=== PATIENT | female | born 1965 | race Caucasian/White ===

== ENCOUNTER → 2016-08-04 | Outpatient (CLI) | payer OTHER ==
[~2016-08-04] MED LIST: ASPCH81X PO; ATOR10TA88 PO; CYAN10005 PO; ERGO1CAP35 PO; LEVO88TA3 PO; LIDO5DIS10 TD; PANT40TA PO; POLY3350 PO; TAMO20TA5 PO; ZOLP10TA PO
[2016-08-04 10:04] LABS: BASO % 0.1 %; BASO ABS # 0.01 K/uL (0-0.2); COMPLETE YES; EOS % 1.2 %; HEMATOCRIT 38.4 % (37-47); IG% 0.5 %; LYMPH % 31.4 %; MEAN CELL VOLUME 87.5 fL (80-100); MEAN PLATELET VOLUME 9.9 fL (7.4-10.4); MONO % 7.5 %; NEUT % 59.3 %; PLATELET COUNT 318 K/uL (130-400); RED BLOOD COUNT 4.39 M/uL (4.2-5.4); WHITE BLOOD COUNT 7.65 K/uL (4.8-10.8)
[2016-08-04 10:37] LABS: ALT/SGPT 43 U/L (12-78); BLOOD UREA NITROGEN 11 mg/dl (7-18); BUN/CREATININE RATIO 10.6 (10-20); CARBON DIOXIDE 28 mmol/L (21-32); CHLORIDE 107 mmol/L (98-107); CHOLESTEROL 156 mg/dl (0-200); CREATININE 0.99 mg/dl (0.60-1.20); GLUCOSE 80 mg/dl (70-99); POTASSIUM 4.3 mmol/L (3.5-5.1); SODIUM 144 mmol/L (136-145)
[2016-08-04 10:46] LABS: ALKALINE PHOSPHATASE 101 U/L (45-117); AST/SGOT 50 U/L (15-37); HDL CHOLESTEROL 39 mg/dl; LDL CHOLESTEROL CALCULATED 82 mg/dl; TRIGLYCERIDES 176 mg/dl (0-150); VERY LOW DENSITY LIPOPROT CALC 35 mg/dl
== END | disposition home or self-care (01) ==
LOC: C.LAB1850 09:05
PROVIDERS: ATTEND Nurse Practitioner Family
DX: E03.9 Hypothyroidism, unspecified (principal); E78.00 Pure hypercholesterolemia, unspecified

== ENCOUNTER → 2016-08-10 | Outpatient (CLI) | payer OTHER ==
[2016-08-10 11:23] LABS: URINE APPEARANCE CLEAR (CLEAR); URINE BILIRUBIN NEG (NEG); URINE COLOR YELLOW; URINE EPITHELIAL CELL AUTO >30 /lpf (0-5); URINE NITRITE NEG (NEG); URINE PH 6.5 (4.5-7.5); URINE SPECIFIC GRAVITY 1.025 (1.000-1.030); UROBILINOGEN NEG (NEG)
[2016-08-10 11:34] LABS: MANUAL MICROSCOPIC REQUIRED? NO; REVIEW REQ? NO
== END | disposition home or self-care (01) ==
LOC: C.LABSPEC 10:50
PROVIDERS: ATTEND Family Medicine
DX: R39.15 Urgency of urination (principal); R10.9 Unspecified abdominal pain

== ENCOUNTER → 2016-10-02 | Outpatient (CLI) | payer OTHER | END | disposition home or self-care (01) | LOC: C.LABSPEC 17:44 | PROVIDERS: ATTEND Nurse Practitioner Family | DX: J02.9 Acute pharyngitis, unspecified (principal) ==

== ENCOUNTER → 2017-02-09 | Outpatient (CLI) | payer OTHER ==
[2017-02-09 09:43] LABS: ALT/SGPT 34 U/L (12-78); BLOOD UREA NITROGEN 12 mg/dl (7-18); BUN/CREATININE RATIO 11.7 (10-20); CALCIUM 9.2 mg/dl (8.5-10.1); CARBON DIOXIDE 29 mmol/L (21-32); CHLORIDE 108 mmol/L (98-107); CHOLESTEROL 153 mg/dl (0-200); GLUCOSE 94 mg/dl (70-99); POTASSIUM 4.3 mmol/L (3.5-5.1); SODIUM 142 mmol/L (136-145)
[2017-02-09 09:54] LABS: ALKALINE PHOSPHATASE 86 U/L (45-117); AST/SGOT 37 U/L (15-37); CHOLESTEROL/HDL RATIO 3.6; HDL CHOLESTEROL 43 mg/dl; LDL CHOLESTEROL CALCULATED 83 mg/dl; TRIGLYCERIDES 133 mg/dl (0-150); VERY LOW DENSITY LIPOPROT CALC 27 mg/dl
== END | disposition home or self-care (01) ==
LOC: C.LAB1850 08:02
PROVIDERS: ATTEND Nurse Practitioner Family
DX: E03.9 Hypothyroidism, unspecified (principal); E55.9 Vitamin D deficiency, unspecified; E53.8 Deficiency of other specified B group vitamins; E78.00 Pure hypercholesterolemia, unspecified

== ENCOUNTER → 2017-03-09 | Outpatient (CLI) | payer OTHER | END | disposition home or self-care (01) | LOC: C.LABSPEC 11:03 | PROVIDERS: ATTEND Nurse Practitioner Adult Health | DX: J02.9 Acute pharyngitis, unspecified (principal) ==

== ENCOUNTER → 2017-05-10 | Outpatient (CLI) | payer OTHER ==
[~2017-05-10] MED LIST changes: +ATOR10TA82 PO; -ATOR10TA88 PO
[2017-05-10 12:52] VITALS: BP 121/81; PULSE 73; TEMP 36.9; O2SAT 97
--- NOTE | 2017-05-10 15:57 | Radiation Oncology Follow-Up ---
Radiation Oncology Follow-Up Date of Visit May 10, 2017. 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 Status post completion of radiation therapy 10/08/2013 received 6120 cGy Status post breast abscess 02/02/2014 requiring incision and drainage and then wound VAC placement. Ongoing treatment with tamoxifen Status post prophylactic total abdominal hysterectomy bilateral salpingo- oophorectomy 04/16/2015 Last Edited By: Sonal Og on May 05, 2015 13:35 Interim History She's been doing well over this past year she has noted no changes to her breast. She's noticed no masses or tenderness and no change of the axilla. She 's had no swelling of her arm. She is up-to-date on mammography. She also has follow-up MRIs. She finds that the MRIs are uncomfortable due to the position that she has to lie in. This causes some discomfort of her back. She continues on tamoxifen and denies side effects. Allergies Coded Allergies: Adhesives (Verified Adverse Reaction, Intermediate, TEGADERM TAPE-BLISTERS , 04/12/16) Hydrocodone (Verified Adverse Reaction, Intermediate, BODY TREMBLING, 04/12) Flu Virus Vaccine (Verified Adverse Reaction, Mild, VOMITING, 04/12/16) Oxycodone (Verified Adverse Reaction, Mild, VOMITING, 04/12/16) Home Medications Scheduled Aspirin (Aspirin Chewable), 81 MG PO QAM Atorvastatin (Lipitor), 10 MG PO QPM Cyanocobalamin (Vitamin B-12), 1,000 MCG PO DAILY Ergocalciferol (Vitamin D Cap), 50,000 INTER.UNIT PO WK Levothyroxine Sodium (Levothyroxine Sodium), 1 TAB PO QAM Pantoprazole (Protonix), 40 MG PO QAM Tamoxifen Citrate (Nolvadex), 20 MG PO QAM Scheduled PRN Polyethylene Glycol 3350 (Polyethylene Glycol 3350), 1 DOSE PO QAM PRN for Constipation Zolpidem Tartrate (Ambien), 10 MG PO HS PRN for Sleep Review of Systems Gastrointestinal: Symptoms: WNL Oral: Symptoms: No Problems Respiratory: Symptoms: WNL Urinary: Symptoms: WNL Skin: Symptoms: No Problems Breast: Right Upper Arm Measurement: 30.0 Right Mid Arm Measurement: 25.8 Right Wrist Measurement: 16.5 Left Upper Arm Measurement: 30.3 Left Mid Arm Measurement: 25.5 Left Wrist Measurement: 16.4 Arm Dominence: Right Physical Exam Vital Signs Date Time Temp Pulse Resp B/P (MAP) Pulse Ox O2 Delivery O2 Flow Rate FiO2 05/10/17 12:52 36.9 73 16 121/81 97 Fatigue: None General Appearance: no apparent distress Eyes: normal inspection, EOMI ENT: normal ENT inspection, hearing grossly normal Neck: no adenopathy, thyroid normal Respiratory/Chest: lungs clear, no respiratory distress, no accessory muscle use Breast: Breast examination reveals well-healed incisions of the right breast. There is noted asymmetry from the postoperative changes and deficit of tissue in the lower outer quadrant. There is mild telangiectasia of the breast incision area. There are no masses or tenderness and no axillary adenopathy. Using the [place] score cosmesis she has a report outcome. The left breast showed no masses or tenderness and no axillary adenopathy. Cardiovascular: regular rate, rhythm, no gallop, no murmur Extremities: no pedal edema Neurologic/Psychiatric: no motor/sensory deficits, alert, normal mood/affect Skin: warm/dry Lymphatic: no adenopathy Laboratory Studies Test 02/09/17 08:05 Sodium Level 142 mmol/L (136-145) Potassium Level 4.3 mmol/L (3.5-5.1) Chloride Level 108 mmol/L (98-107) Carbon Dioxide Level 29 mmol/L (21-32) Anion Gap 5.0 mmol/L (3-11) Blood Urea Nitrogen 12 mg/dl (7-18) Creatinine 1.00 mg/dl (0.60-1.20) Estimated GFR () 76.6 Estimated GFR (Non- 66.1 BUN/Creatinine Ratio 11.7 (10-20) Random Glucose 94 mg/dl (70-99) Calcium Level 9.2 mg/dl (8.5-10.1) Total Bilirubin 0.4 mg/dl (0.2-1) Aspartate Amino Transferase (AST) 37 U/L (15-37) Alanine Aminotransferase (ALT) 34 U/L (12-78) Alkaline Phosphatase 86 U/L (45-117) Total Protein 7.1 gm/dl (6.4-8.2) Albumin 3.5 gm/dl (3.4-5.0) Globulin 3.6 gm/dl (2.5-4.0) Albumin/Globulin Ratio 1.0 (0.9-2) Triglycerides Level 133 mg/dl (0-150) Cholesterol Level 153 mg/dl (0-200) HDL Cholesterol 43 mg/dl LDL Cholesterol, Calculated 83 mg/dl VLDL Cholesterol, Calculated 27 mg/dl Cholesterol/HDL Ratio 3.6 Vitamin B12 Level 952 pg/mL (211-911) 25-Hydroxy Vitamin D Total 63.2 ng/ml (30-100) Thyroid Stimulating Hormone (TSH) 1.120 uIu/ml (0.300-4.500) Additional Studies She had a mammogram 12/04/2016. This was a bilateral evaluation. This was negative, no evidence of malignancy. Normal interval follow-up was recommended for 12 months. BI-RADS Category 2 Assessment & Plan Plan: Continue but scheduled mammography. Her next mammogram is scheduled for November. She has a recheck MRI scheduled for June 25. I have asked her to talk to the breast surgeon about the MRIs and that these cause back discomfort. I did educate her on the importance of this study in women who have dense breasts. This type of imaging as well as mammography is important for good evaluation. Continue follow-up with her breast surgeon and primary care physician. She'll continue follow-up with Dr. Hatfield. In medical oncology. She continues on tamoxifen. We discussed the breasts asymmetry and difficulty with fitting a bra. I made her aware of the program called [employer]. We also discussed placing padding into the bra. We asked her to return to our office in 1 year. She may call if she has any questions or concerns in the interim. Total Time In Follow-Up I spent 20 minutes speaking to the patient and performing examination. I spent 15 minutes reviewing information and completeness note. 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
== END | disposition home or self-care (01) ==
LOC: C.ONC 12:26
PROVIDERS: ATTEND Physician Assistant Medical
DX: Z08 Encounter for follow-up examination after completed treatment for malignant neoplasm (principal); Z92.3 Personal history of irradiation; Z85.3 Personal history of malignant neoplasm of breast

== ENCOUNTER → 2017-07-31 | Outpatient (CLI) | payer OTHER ==
[~2017-07-31] MED LIST changes: +ERGO500037 PO; +FLAX1CAP11 PO; -LIDO5DIS10 TD
[2017-07-31 12:39] LABS: BLOOD UREA NITROGEN 14 mg/dl (7-18); CREATININE 1.02 mg/dl (0.60-1.20); GLUCOSE 93 mg/dl (70-99)
[2017-07-31 12:40] LABS: ALBUMIN 3.9 gm/dl (3.4-5.0); ALT/SGPT 40 U/L (12-78); AST/SGOT 51 U/L (15-37); CALCIUM 9.2 mg/dl (8.5-10.1); CARBON DIOXIDE 27 mmol/L (21-32); POTASSIUM 4.1 mmol/L (3.5-5.1); SODIUM 137 mmol/L (136-145); TOTAL PROTEIN 7.9 gm/dl (6.4-8.2)
[2017-07-31 12:49] LABS: ALKALINE PHOSPHATASE 92 U/L (45-117); CHOLESTEROL 174 mg/dl (0-200); LDL CHOLESTEROL CALCULATED 95 mg/dl
== END | disposition home or self-care (01) ==
LOC: C.LAB1850 09:30
PROVIDERS: ATTEND Nurse Practitioner Family
DX: E78.00 Pure hypercholesterolemia, unspecified (principal); E03.9 Hypothyroidism, unspecified; E55.9 Vitamin D deficiency, unspecified; E53.8 Deficiency of other specified B group vitamins

== ENCOUNTER → 2017-08-21 | Outpatient (CLI) | payer OTHER ==
[~2017-08-21] MED LIST changes: -ERGO500037 PO; -FLAX1CAP11 PO
[2017-08-21 16:14] LABS: BASO % 0.1 %; BASO ABS # 0.01 K/uL (0-0.2); EOS % 0.8 %; EOS ABS # 0.06 K/uL (0-0.5); HEMATOCRIT 35.5 % (37-47); HEMOGLOBIN 11.6 g/dL (12.0-16.0); IG# 0.02 K/uL (0.00-0.02); MEAN CORPUSCULAR HEMOGLOBIN 28.4 pg (25-34); MEAN CORPUSCULAR HGB CONC 32.7 g/dl (32-36); MEAN PLATELET VOLUME 9.9 fL (7.4-10.4); MONO % 7.9 %; NEUT % 57.9 %; NEUT ABS # 4.39 K/uL (1.4-6.5); PLATELET COUNT 282 K/uL (130-400); RED CELL DISTRIBUTION WIDTH SD 48.1 fL (36.4-46.3); WHITE BLOOD COUNT 7.58 K/uL (4.8-10.8)
[2017-08-21 16:51] LABS: URIC ACID 5.3 mg/dl (2.6-7.2)
== END | disposition home or self-care (01) ==
LOC: C.LAB1850 15:35
PROVIDERS: ATTEND Nurse Practitioner Family
DX: M25.50 Pain in unspecified joint (principal)

== ENCOUNTER → 2017-08-30 | Outpatient (CLI) | payer OTHER ==
--- NOTE | 2017-08-30 09:16 | DIAGNOSTIC IMAGING REPORT ---
R KNEE 1 OR 2 VIEWS ROUTINE CLINICAL HISTORY: 52 years-old Female presenting with M25.50 Arthralgia of multiple tokbwO27.8 MAXIMILIANO [id number] Neck. TECHNIQUE: Frontal and lateral views of the right knee were obtained. COMPARISON: Correlation made to plain radiographs of the left knee from 2009. FINDINGS: No acute fracture or malalignment. No advanced degenerative change. No evidence of erosions. No joint effusion. No radiographic soft tissue abnormality. IMPRESSION: 1. No evidence of arthritis in the right knee. 2. No acute osseous injury. Electronically signed by: Braulio Stein M.D. 08/30/2017 9:15 AM Dictated Date/Time: 08/30/2017 9:14 AM
--- NOTE | 2017-08-30 09:17 | DIAGNOSTIC IMAGING REPORT ---
RIGHT HAND 3 VIEWS CLINICAL HISTORY: Multifocal arthralgias. FINDINGS: 3 views of the right hand are obtained. No prior studies are available for comparison at the time of dictation. The skeletal structures are well mineralized. No fracture is seen. The joint spaces of the hand are well-maintained. No erosive disease is identified. The overlying soft tissues are within normal limits. IMPRESSION: Unremarkable radiographic assessment of the right hand. Electronically signed by: Ezio Pantoja M.D. 08/30/2017 9:16 AM Dictated Date/Time: 08/30/2017 9:15 AM
--- NOTE | 2017-08-30 09:19 | DIAGNOSTIC IMAGING REPORT ---
L HAND MIN 3 VIEWS ROUTINE CLINICAL HISTORY: M25.50 Arthralgia of multiple yzfhhZ10.8 MAXIMILIANO positive COMPARISON: None. DISCUSSION: No fractures are visualized. There are no erosive or destructive changes. IMPRESSION: 1. No evidence of fracture 2. No evidence of erosive disease Electronically signed by: Teo Skelton M.D. 08/30/2017 9:18 AM Dictated Date/Time: 08/30/2017 9:14 AM
--- NOTE | 2017-08-30 09:19 | DIAGNOSTIC IMAGING REPORT ---
C-SPINE ROUTINE 4 OR 5 VIEWS CLINICAL HISTORY: 52 years-old Female presenting with M25.50 Arthralgia of multiple kspjaH20.8 MAXIMILIANO dtszoukwE25.2 Neck. TECHNIQUE: Lateral, bilateral oblique, frontal, and open-mouth odontoid views of the cervical spine were obtained. COMPARISON: 01/15/2014 and CTA neck from 2015. FINDINGS: Normal cervical lordosis. The C7 vertebral body is fully visualized. Vertebral bodies maintain normal height and alignment. Intervertebral disc spaces preserved. No significant degenerative change at the atlantodental articulation. No radiographic evidence of acute fracture or subluxation. Mild osseous neural foraminal narrowing may be present on the right at C3-4 through C5-6. No left osseous neural foraminal narrowing. Lateral masses of C1 articulate normally with C2. No prevertebral soft tissue swelling. Lung apices clear. IMPRESSION: No significant degenerative change though mild osseous neural foraminal narrowing may be present on the right from C3-4 through C5-6. No radiographic evidence of acute osseous injury. No radiographic findings indicative of arthritis. Electronically signed by: Braulio Stein M.D. 08/30/2017 9:17 AM Dictated Date/Time: 08/30/2017 9:15 AM
[2017-08-30 10:28] LABS: TRANSFERRIN 327 mg/dl (200-360)
[2017-09-05 02:33] LABS: ANA SCREEN TC 249X POSITIVE (NEGATIVE); ANTI-SS-A <1.0 NEG AI (<1.0 NEG); ANTI-SS-B <1.0 NEG AI (<1.0 NEG); COMPLEMENT C3 TC 44859W 125 MG/DL (90-180); COMPLEMENT C4 TC 44982E 24 MG/DL (16-47)
== END | disposition home or self-care (01) ==
LOC: C.RAD1850 08:40
PROVIDERS: ATTEND Internal Medicine Rheumatology
DX: M25.50 Pain in unspecified joint (principal); M54.2 Cervicalgia; R76.8 Other specified abnormal immunological findings in serum

== ENCOUNTER → 2017-09-10 | Outpatient (CLI) | payer OTHER ==
--- NOTE | 2017-09-10 15:28 | DIAGNOSTIC IMAGING REPORT ---
BONE SCAN WHOLE BODY HISTORY: Breast carcinoma M25.50 Arthralgia of multiple ixrifI47.8 MAXIMILIANO sodvslbmL68.2 Neck RADIOTRACER: 25.5 mCi Tc-99m MDP STUDY/IMAGES: Planar anterior and posterior whole body imaging was performed 3 hours following the intravenous administration of radiotracer. COMPARISON: 09/17/2014 FINDINGS: Bilateral renal activity is present. Minimal scattered degenerative activity of the shoulders and elbows. Normal activity characteristics of all remaining osseous structures. No evidence for metastatic process. No abnormal soft tissue activity characteristics. IMPRESSION: 1. The study is negative for metastatic bone disease. 2. Minimal degenerative activity of the shoulders and elbows. The above report was generated using voice recognition software. It may contain grammatical, syntax or spelling errors. Electronically signed by: Bryan Aviles M.D. 09/10/2017 3:26 PM Dictated Date/Time: 09/10/2017 3:24 PM
== END | disposition home or self-care (01) ==
LOC: C.NUCL 11:44
PROVIDERS: ATTEND Internal Medicine Rheumatology
DX: M25.60 Stiffness of unspecified joint, not elsewhere classified (principal); M54.2 Cervicalgia; R76.8 Other specified abnormal immunological findings in serum

== ENCOUNTER → 2017-10-19 | Day surgery (SDC) | payer OTHER ==
[2017-10-04 14:48] VITALS: Ht 167.6 cm; Wt 90.9 kg
[~2017-10-19] VITALS: Ht 167.6 cm; Wt 90.9 kg
[~2017-10-19] MED LIST changes: -ERGO1CAP35 PO; +ERGO500037 PO; +FLAX1CAP11 PO; +LIDOCAINE HCL 2% 2 ML VIAL (20MG/ML) ONE; +PROPOFOL IV EMULSION 10 MG/ML 20 ML VIAL IV ONE; +SODIUM CHLORIDE 0.9% 500ML 500 ML IV ONE
--- NOTE | 2017-10-19 10:08 | Endo History and Physical ---
History & Physical Date of Service: Oct 19, 2017. Chief Complaint: Screening Referring Physician: Flip Rogers History of Present Illness 52 yo CF who presents for screening colonoscopy. Past Medical History Anxiety, Reflux, Cancer, Thyroid Disease, Depression Past Surgical History Hx Cardiac Surgery: No Hx Internal Defibrillator: No Hx Pacemaker: No Hx Abdominal Surgery: Yes (TUBAL LIGATION, REMOVAL OF OVARIAN CYST, MARCO BSO, D& C) Hx of Implantable Prosthesis: No Hx Post-Op Nausea and Vomiting: Yes (R/T NARCOTICS) Hx Cancer Surgery: Yes (RIGHT BREAST LUMPECTOMY WITH LYMPH NODE DISECTION) Hx Thoracic Surgery: No Hx Orthopedic: Yes (RT WRIST SURGERY, LEFT ANKLE TENDON REPAIR) Hx Urinary Tract Surgery: No Family History None Social History Smoking Status: Never Smoker Hx Substance Use: No Hx Alcohol Use: No Allergies Coded Allergies: Adhesives (Verified Adverse Reaction, Intermediate, TEGADERM TAPE-BLISTERS , 10/19/17) Hydrocodone (Verified Adverse Reaction, Intermediate, BODY TREMBLING, 10/19) Flu Virus Vaccine (Verified Adverse Reaction, Mild, VOMITING, 10/19/17) Oxycodone (Verified Adverse Reaction, Mild, VOMITING, 10/19/17) Current Medications Reported Home Medications Medications Dose Route/Sig Max Daily Dose Days Date Category Flax Seed Oil (Flaxseed (Linseed)) 1 Cap Cap 1 Cap PO QAM 10/04/17 Reported Vitamin D 89570 Unit (Ergocalciferol) 50,000 Unit Cap 50,000 Unit PO WK 10/04/17 Reported Vitamin B-12 (Cyanocobalamin) 1,000 Mcg Tab 1,000 Mcg PO QAM 05/09/16 Reported Aspirin Chewable (Aspirin) 81 Mg Chew 81 Mg PO QAM 03/30/16 Reported Protonix (Pantoprazole Sodium) 40 Mg Tab 40 Mg PO QAM 03/30/16 Reported Lipitor (Atorvastatin Calcium) 10 Mg Tab 10 Mg PO QPM 03/30/16 Reported Levothyroxine Sodium 88 Mcg Tab 1 Tab PO QAM 90 03/30/15 Reported Polyethylene Glycol 3350 1 Pow Pow 1 Dose PO QAM PRN 05/05/14 Reported Nolvadex (Tamoxifen Citrate) 20 Mg Tab 20 Mg PO QAM 01/30/14 Reported Ambien (Zolpidem Tartrate) 10 Mg Tab 10 Mg PO HS PRN 09/03/12 Reported Vital Signs Weight (Kilograms): 90.91 Height (Feet): 5 Height (Inches): 6 Date Time Temp Pulse Resp B/P (MAP) Pulse Ox O2 Delivery O2 Flow Rate FiO2 10/19/17 09:49 37.2 70 18 138/88 (105) 99 Room Air Physical Exam General Appearance: WD/WN, no apparent distress Respiratory/Chest: Auscultation: breath sounds normal Cardiovascular: Heart Auscultation: RRR Abdomen: Bowel Sounds: normal Inspection & Palpation: soft, non-distended, no tenderness, guarding & rebound Assessment and Plan Assessment: 52 yo CF who presents for screening colonoscopy. Plan: Proceed with colonoscopy.
--- NOTE | 2017-10-19 10:38 | GI REPORT ---
Procedure Date: 10/19/2017 9:57 AM Procedure: Colonoscopy Indications: Screening for colorectal malignant neoplasm Medicines: Monitored Anesthesia Care Complications: No immediate complications. Estimated Blood Loss: Estimated blood loss: none. Procedure: Pre-Anesthesia Assessment: - Prior to the procedure, a History and Physical was performed, and patient medications and allergies were reviewed. The patient's tolerance of previous anesthesia was also reviewed. The risks and benefits of the procedure and the sedation options and risks were discussed with the patient. All questions were answered, and informed consent was obtained. Prior Anticoagulants: The patient has taken no previous anticoagulant or antiplatelet agents. ASA Grade Assessment: II - A patient with mild systemic disease. After reviewing the risks and benefits, the patient was deemed in satisfactory condition to undergo the procedure. After I obtained informed consent, the scope was passed under direct vision. Throughout the procedure, the patient's blood pressure, pulse, and oxygen saturations were monitored continuously. The Scope was introduced through the anus and advanced to the terminal ileum. The colonoscopy was performed without difficulty. The patient tolerated the procedure well. The quality of the bowel preparation was good. The terminal ileum, ileocecal valve, appendiceal orifice, and rectum were photographed. Findings: The perianal and digital rectal examinations were normal. Non-bleeding internal hemorrhoids were found during retroflexion. The hemorrhoids were small. The exam was otherwise without abnormality. Impression: - Non-bleeding internal hemorrhoids. - The examination was otherwise normal. - No specimens collected. Recommendation: - Resume previous diet. - Continue present medications. - Repeat colonoscopy in 10 years for surveillance. - Return to primary care physician as previously scheduled. Prasad Churchill, 10/19/2017 10:38:07 AM This report has been signed electronically. Note Initiated On: 10/19/2017 9:57 AM I attest to the content of the Intraoperative Record and orders documented therein, exceptions below
--- NOTE | 2017-10-19 11:02 | Anesthesiology Progress Note ---
Anesthesia Post Op Note Date & Time Oct 19, 2017 at 11:02 Vital Signs Pain Intensity: 0 Vital Signs Past 12 Hours Date Time Temp Pulse Resp B/P (MAP) Pulse Ox O2 Delivery O2 Flow Rate FiO2 10/19/17 10:54 66 16 124/81 (95) 99 Room Air 10/19/17 10:39 83 16 106/69 (81) 100 Room Air 10/19/17 09:49 37.2 70 18 138/88 (105) 99 Room Air Notes Mental Status: alert / awake / arousable, participated in evaluation Pt Amnestic to Procedure: Yes Nausea / Vomiting: adequately controlled Pain: adequately controlled Airway Patency, RR, SpO2: stable & adequate BP & HR: stable & adequate Hydration State: stable & adequate Anesthetic Complications: no major complications apparent
[2017-10-19 11:09] VITALS: BP 142/88; PULSE 60; O2SAT 99
--- NOTE | 2017-10-19 11:21 | Discharge Instructions ---
Endoscopy Patient Instructions Date / Procedure(s) Performed Oct 19, 2017. Colonoscopy Allergy Information Coded Allergies: Adhesives (Verified Adverse Reaction, Intermediate, TEGADERM TAPE-BLISTERS , 10/19/17) Hydrocodone (Verified Adverse Reaction, Intermediate, BODY TREMBLING, 10/19) Flu Virus Vaccine (Verified Adverse Reaction, Mild, VOMITING, 10/19/17) Oxycodone (Verified Adverse Reaction, Mild, VOMITING, 10/19/17) Discharge Date / Findings Oct 19, 2017. Internal hemorrhoids Medication Instructions Stopped Medication(s): Aspirin lsat taken on 10/06/17 Flax seed last taken on 10/06/17 OK to resume all medications today as prescribed Reported Home Medications Medications Dose Route/Sig Max Daily Dose Days Date Category Flax Seed Oil (Flaxseed (Linseed)) 1 Cap Cap 1 Cap PO QAM 10/04/17 Reported Vitamin D 74810 Unit (Ergocalciferol) 50,000 Unit Cap 50,000 Unit PO WK 10/04/17 Reported Vitamin B-12 (Cyanocobalamin) 1,000 Mcg Tab 1,000 Mcg PO QAM 05/09/16 Reported Aspirin Chewable (Aspirin) 81 Mg Chew 81 Mg PO QAM 03/30/16 Reported Protonix (Pantoprazole Sodium) 40 Mg Tab 40 Mg PO QAM 03/30/16 Reported Lipitor (Atorvastatin Calcium) 10 Mg Tab 10 Mg PO QPM 03/30/16 Reported Levothyroxine Sodium 88 Mcg Tab 1 Tab PO QAM 90 03/30/15 Reported Polyethylene Glycol 3350 1 Pow Pow 1 Dose PO QAM PRN 05/05/14 Reported Nolvadex (Tamoxifen Citrate) 20 Mg Tab 20 Mg PO QAM 01/30/14 Reported Ambien (Zolpidem Tartrate) 10 Mg Tab 10 Mg PO HS PRN 09/03/12 Reported Provider Instructions Activity Restrictions - No exercising or heavy lifting for 24 hours. - Do not drink alcohol the day of the procedure. - Do not drive a car or operate machinery until the day after the procedure. - Do not make any important decisions or sign important papers in 24 hours after the procedure. Following Day: - Return to full activity which may include returning to work/school. Diet Start your diet with liquids and light foods (jello, soup, juice, toast). Then eat your usual diet if not nauseated. Treatment For Common After Affects For mild abdominal pain, bloating, or excessive gas: - Rest - Eat lightly - Lie on right side Follow-Up Information Follow-up with Flip Rogers as scheduled Anesthesia Information What You Should Know You have had a procedure that required some medicine to reduce anxiety and discomfort. This treatment is called moderate sedation. After receiving the treatment, you may be sleepy, but you will be able to breathe on your own. The effects of the treatment may last for several hours. Follow these instructions along with Activity/Diet recommendations noted above: * Do NOT do anything where dizziness or clumsiness would be dangerous. * Rest quietly at home today, then you can be up and about tomorrow. * Have a responsible person stay with you the rest of today. * You may have had an I.V. today. If so, you may take the dressing off later today. Recommendations Call your doctor if: * Trouble breathing * Continuous vomiting for more than 24 hours * Temperature above 101 degrees * Severe abdominal pain or bloating * Pain not relieved by pain medicine ordered * There is increased drainage or redness from any incision * A large amount of rectal bleeding greater than 2-3 tablespoons. (If you had a polyp/s removed or have hemorrhoids, a small amount of blood - from the rectum is to be expected.) * You have any unanswered questions or concerns. IN THE EVENT OF A SERIOUS EMERGENCY, GO TO THE NEAREST EMERGENCY ROOM Your discharge instructions were prepared by provider Prasad Churchill. Patient Instructions Signature Page Abril Estrada Patient (or Guardian) Signature/Date: I have read and understand the instructions given to me by my caregivers. Caregiver/RN/Doctor Signature/Date: The above-named patient and/or guardian has received patient instructions on this date. + Original Patient Signature Page (only) stays with chart. Please make copy for patient.
== END | disposition home or self-care (01) ==
LOC: C.GI 08:08
PROVIDERS: ATTEND Internal Medicine
DX: Z12.11 Encounter for screening for malignant neoplasm of colon (principal); K64.8 Other hemorrhoids; F41.9 Anxiety disorder, unspecified; K21.9 Gastro-esophageal reflux disease without esophagitis; F32.9 Major depressive disorder, single episode, unspecified; Z90.710 Acquired absence of both cervix and uterus; Z91.048 Other nonmedicinal substance allergy status; Z88.5 Allergy status to narcotic agent; Z88.7 Allergy status to serum and vaccine; Z79.82 Long term (current) use of aspirin; M19.90 Unspecified osteoarthritis, unspecified site; E78.5 Hyperlipidemia, unspecified; Z86.73 Personal history of transient ischemic attack (TIA), and cerebral infarction without residual deficits; Z85.3 Personal history of malignant neoplasm of breast

== ENCOUNTER 2017-10-24 13:54 | Emergency (ER) | payer OTHER ==
[~2017-10-24] VITALS: Ht 167.6 cm; Wt 91.0 kg
[~2017-10-24 13:54] MED LIST changes: -LIDOCAINE HCL 2% 2 ML VIAL (20MG/ML) ONE; -PROPOFOL IV EMULSION 10 MG/ML 20 ML VIAL IV ONE; -SODIUM CHLORIDE 0.9% 500ML 500 ML IV ONE
[2017-10-24 14:02] VITALS: TEMP 37.2; Ht 167.6 cm; Wt 91.0 kg
--- NOTE | 2017-10-24 14:27 | EMERGENCY ROOM VISIT NOTE ---
History Report prepared by Kenzie: Dima Balbuena Under the Supervision of: Dr. Martha Licona D.O. First contact with patient: 14:10 Chief Complaint: URINARY SYMPTOMS Stated Complaint: HAD SURGERY YESTERDAY - UNABLE TO PEE Nursing Triage Summary: pt to the ED with c/o bladder surgery at [facility] yesterday was dc yesterday pt c/o last void was 1130am today pt states she can't go to the bathroom now had a rectocele repair History of Present Illness The patient is a 52 year old female with who presents to the Emergency Room with complaints of a persistent inability to urinate this afternoon. She states that she had bladder surgery (rectocele repair) at [facility] yesterday by Dr. Bush, and was discharged yesterday as well. The patient says that she last urinated around 3 hours ago but it was a very small amount, and notes that she cannot urinate currently. She notes that she sits on the toilet for 5 to 10 minutes and feels the need to urinate but cannot. She states that she took the pain medication that she was prescribed last night but it did not relieve her pain. She adds that her abdomen still hurts, and it feels bloated. The patient says that she called her surgeon today, and was told to come here for treatment. The patient states that she had a lot of bleeding with blood clots, but that has lessened today. She denies any fevers, chills, or current back pain. Source of History: patient Onset: This afternoon Position: other (global) Symptom Intensity: has not urinated in about 3 hours Quality: other (inability to urinate) Timing: other (persistent) Associated Symptoms: + abdominal pain (and bloating), No fevers, No chills, No back pain Note: Some vaginal bleeding, but getting better today. Review of Systems See HPI for pertinent positives & negatives. A total of 10 systems reviewed and were otherwise negative. 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 (3) Kristine thyroiditis (4) Vitamin B12 deficiency (non anemic) (5) Vitamin D deficiency Family History Diabetes mellitus FH: cancer Hypertension Social History Smoking Status: Never Smoker Alcohol Use: occasionally Marital Status: single Housing Status: lives with family Occupation Status: disabled Current/Historical Medications Scheduled Aspirin (Aspirin Chewable), 81 MG PO QAM Atorvastatin (Lipitor), 10 MG PO QPM Cyanocobalamin (Vitamin B-12), 1,000 MCG PO QAM Ergocalciferol (Vitamin D 58457 Unit), 50,000 UNIT PO WK Flaxseed (Linseed) (Flax Seed Oil), 1 CAP PO QAM Levothyroxine Sodium (Levothyroxine Sodium), 88 MCG PO QAM Pantoprazole (Protonix), 40 MG PO QAM Tamoxifen Citrate (Nolvadex), 20 MG PO QAM Scheduled PRN Polyethylene Glycol 3350 (Polyethylene Glycol 3350), 1 DOSE PO QAM PRN for Constipation Zolpidem Tartrate (Ambien), 10 MG PO HS PRN for Sleep Allergies Coded Allergies: Adhesives (Verified Adverse Reaction, Intermediate, TEGADERM TAPE-BLISTERS , 10/24/17) Hydrocodone (Verified Adverse Reaction, Intermediate, BODY TREMBLING, 10/24) Flu Virus Vaccine (Verified Adverse Reaction, Mild, VOMITING, 10/24/17) Oxycodone (Verified Adverse Reaction, Mild, VOMITING, 10/24/17) Physical Exam Vital Signs Date Time Temp Pulse Resp B/P (MAP) Pulse Ox O2 Delivery O2 Flow Rate FiO2 10/24/17 16:00 72 18 115/76 99 Room Air 10/24/17 14:02 37.2 86 18 125/80 99 Physical Exam GENERAL: alert, well appearing, well nourished, no distress, non-toxic EYE EXAM: normal conjunctiva, PERRL and EOM's grossly intact OROPHARYNX: no exudate, no erythema, lips, buccal mucosa, and tongue normal and mucous membranes are moist NECK: supple, no nuchal rigidity, no adenopathy, non-tender LUNGS: Clear to auscultation. Normal chest wall mechanics HEART: no murmurs, S1 normal and S2 normal ABDOMEN: abdomen soft, suprapubic tenderness, normo-active bowel sounds, no masses, no rebound or guarding. BACK: Back is symmetrical on inspection and there is no deformity, no midline tenderness, no CVA tenderness. SKIN: no rashes and no bruising UPPER EXTREMITIES: upper extremities are grossly normal. LOWER EXTREMITIES: No pitting edema. NEURO EXAM: Normal sensorium, cranial nerves II-XII grossly intact, normal speech, no gross weakness of arms, no gross weakness of legs. Medical Decision & Procedures Laboratory Results Test 10/24/17 15:08 Urine Color YELLOW Urine Appearance CLEAR (CLEAR) Urine pH 6.5 (4.5-7.5) Urine Specific [place] 1.016 (1.000-1.030) Urine Protein NEG (NEG) Urine Glucose (UA) NEG (NEG) Urine Ketones NEG (NEG) Urine Occult Blood NEG (NEG) Urine Nitrite NEG (NEG) Urine Bilirubin NEG (NEG) Urine Urobilinogen NEG (NEG) Urine Leukocyte Esterase NEG (NEG) Medications Administered Medications (Trade) Dose Ordered Sig/Sidra Route Start Time Stop Time Status Last Admin Dose Admin Lidocaine HCl (Xylocaine Jelly 2%) 30 ml STK-MED ONCE EXT 10/24/17 15:02 10/24/17 15:03 DC 10/24/17 15:02 30 ML Lidocaine HCl (Xylocaine Jelly 2%) 30 ml STK-MED ONCE EXT 10/24/17 16:36 10/24/17 16:39 DC 10/24/17 16:36 30 ML ED Course 1414: The patient was evaluated in room C8. A complete history and physical exam was performed. Medical Decision Differential diagnoses includes but is not limited to gastritis, peptic ulcer disease, GERD, gallbladder disease, pancreatitis, small bowel obstruction, acute coronary syndrome, pericarditis, ischemic bowel, irritable bowel disease, irritable bowel syndrome, appendicitis, diverticulitis, malignancy, hernia, urinary tract infection, torsion, /ectopic , perforation, trauma, infectious. Discussed with pt possible infection or urinary retention both secondary to surgery yesterday. Pt states she had miranda in during procedure but was then removed prior to going home. Initial bladder scan here didn't reveal significant amount and pt able to provide small amount of urine. Pt still felt urge to void so straight cath performed and UA sent. Pt continued to drink fluids in the ER while being observed. Repeat bladder scan showed 500 ml, so miranda discussed with patient and she was agreeable. Pt felt improved following placement of catheter. Advised close f/u with urology. Discussed likely sluggish bladder due to anesthesia and pain meds related to surgery. Pt afebrile, no back pain, no n/v, no hx of kidney dysfunction. Pt well appearing here otherwise. VS stable. Did not feel pt warranted additional labs/imaging for renal failure, ureterolithiasis, post op complication or other acute GI pathology. Pt felt otherwise she was healing and bleeding slowing as expected post op. Pt had no other concerns other than urgency and decreased urine output. Discussed sx to watch/return for, she verbalized understanding and was agreeable with plan. Medication Reconcilliation Current Medication List: was personally reviewed by me Blood Pressure Screening Patient's blood pressure: Normal blood pressure Impression Primary Impression: Urinary retention Additional Impression: Urinary urgency Scribe Attestation The scribe's documentation has been prepared under my direction and personally reviewed by me in its entirety. I confirm that the note above accurately reflects all work, treatment, procedures, and medical decision making performed by me. Departure Information Dispostion Home / Self-Care Referrals Flip Rogers III, CRNP (PCP) Patient Instructions [facility] Additional Instructions Please call in follow-up with a urologist to have the catheter removed and recheck your ability to urinate. Please follow-up with your surgeon as scheduled. Please continue to drink plenty of water and take the medications were prescribed. If you develop fevers, worsening bleeding, noticed blood in the catheter of the catheter does not seem to be draining correctly, have increased abdominal pain or back pain, vomiting, you have any other new concerns , please return the emergency room. Problem Qualifiers
[2017-10-24] MEDS ORDERED: LIDOCAINE HCL 2% JELLY 30 ML TUBE EXT ONE ×2 (15:02→16:36)
[2017-10-24 16:00] VITALS: BP 115/76; PULSE 72; O2SAT 99
== END 2017-10-24 17:37 | disposition home or self-care (01) ==
LOC: C.EDB 13:56 → C.EDC 17:37
DX: R33.9 Retention of urine, unspecified (principal); R39.15 Urgency of urination; E06.3 Autoimmune thyroiditis; E53.8 Deficiency of other specified B group vitamins; Z85.3 Personal history of malignant neoplasm of breast; Z98.890 Other specified postprocedural states; Z79.82 Long term (current) use of aspirin; Z79.899 Other long term (current) drug therapy

== ENCOUNTER → 2018-02-26 | Outpatient (CLI) | payer OTHER ==
[2018-02-26 10:37] LABS: BASO % 0.1 %; BASO ABS # 0.01 K/uL (0-0.2); EOS % 1.9 %; EOS ABS # 0.14 K/uL (0-0.5); HEMATOCRIT 35.3 % (37-47); HEMOGLOBIN 11.1 g/dL (12.0-16.0); IG# 0.01 K/uL (0.00-0.02); LYMPH % 31.1 %; LYMPH ABS # 2.32 K/uL (1.2-3.4); MEAN CELL VOLUME 84.7 fL (80-100); MEAN CORPUSCULAR HEMOGLOBIN 26.6 pg (25-34); MEAN CORPUSCULAR HGB CONC 31.4 g/dl (32-36); MEAN PLATELET VOLUME 9.9 fL (7.4-10.4); MONO % 6.4 %; MONO ABS # 0.48 K/uL (0.11-0.59); NEUT % 60.4 %; PLATELET COUNT 278 K/uL (130-400); RED CELL DISTRIBUTION WIDTH CV 15.8 % (11.5-14.5); RED CELL DISTRIBUTION WIDTH SD 48.5 fL (36.4-46.3); WHITE BLOOD COUNT 7.46 K/uL (4.8-10.8)
[2018-02-26 11:18] LABS: ALBUMIN 3.5 gm/dl (3.4-5.0); ALKALINE PHOSPHATASE 85 U/L (45-117); ALT/SGPT 39 U/L (12-78); AST/SGOT 44 U/L (15-37); BLOOD UREA NITROGEN 11 mg/dl (7-18); CALCIUM 8.2 mg/dl (8.5-10.1); CARBON DIOXIDE 23 mmol/L (21-32); CHOLESTEROL 128 mg/dl (0-200); CREATININE 0.99 mg/dl (0.60-1.20); GLUCOSE 90 mg/dl (70-99); LDL CHOLESTEROL CALCULATED 59 mg/dl; POTASSIUM 3.8 mmol/L (3.5-5.1); SODIUM 138 mmol/L (136-145)
== END | disposition home or self-care (01) ==
LOC: C.LAB1850 10:09
PROVIDERS: ATTEND Nurse Practitioner Family
DX: E03.9 Hypothyroidism, unspecified (principal); E55.9 Vitamin D deficiency, unspecified; E53.8 Deficiency of other specified B group vitamins; M25.50 Pain in unspecified joint; E78.00 Pure hypercholesterolemia, unspecified

== ENCOUNTER → 2018-02-27 | Day surgery (SDC) | payer OTHER ==
[2018-02-26 13:34] VITALS: BMI 32.0
[~2018-02-27] VITALS: Ht 167.6 cm; Wt 90.9 kg
[~2018-02-27] MED LIST changes: -FLAX1CAP11 PO; +LIDOCAINE HCL 2% 2 ML VIAL (20MG/ML) ONE; +PROPOFOL IV EMULSION 10 MG/ML 20 ML VIAL ONE; +SODIUM CHLORIDE 0.9% 500ML 500 ML IV ONE
[2018-02-27 09:18] VITALS: Ht 167.6 cm; Wt 90.9 kg
--- NOTE | 2018-02-27 09:34 | Endo History and Physical ---
History & Physical Date of Service: Feb 27, 2018. Chief Complaint: DYSPHAGIA, GERD, SCHATZKIS RING Referring Physician: HANNAH SHEN NP History of Present Illness 52 yo CF who presents for EGD secondary to Dysphagia, history of Schatzki's ring and GERD. Past Medical History Anxiety, Reflux, Cancer, Thyroid Disease, Depression Past Surgical History Hx Cardiac Surgery: No Hx Internal Defibrillator: No Hx Pacemaker: No Hx Abdominal Surgery: Yes (TUBAL LIGATION, REMOVAL OF OVARIAN CYST, MARCO BSO, D& C) Hx of Implantable Prosthesis: No Hx Post-Op Nausea and Vomiting: Yes (R/T NARCOTICS) Hx Cancer Surgery: Yes (RIGHT BREAST LUMPECTOMY WITH LYMPH NODE DISECTION) Hx Thoracic Surgery: No Hx Orthopedic: Yes (RT WRIST SURGERY, LEFT ANKLE TENDON REPAIR) Hx Urinary Tract Surgery: Yes (CYSTOCELE REPAIR) Family History None Social History Smoking Status: Never Smoker Hx Substance Use: No Hx Alcohol Use: No Allergies Coded Allergies: Adhesives (Verified Adverse Reaction, Intermediate, TEGADERM TAPE-BLISTERS , 02/26/18) Hydrocodone (Verified Adverse Reaction, Intermediate, BODY TREMBLING, 02/26) Flu Virus Vaccine (Verified Adverse Reaction, Mild, VOMITING, 02/26/18) Oxycodone (Verified Adverse Reaction, Mild, VOMITING, 02/26/18) Current Medications Reported Home Medications Medications Dose Route/Sig Max Daily Dose Days Date Category Vitamin D 59681 Unit (Ergocalciferol) 50,000 Unit Cap 50,000 Unit PO WK 10/04/17 Reported Vitamin B-12 (Cyanocobalamin) 1,000 Mcg Tab 1,000 Mcg PO QAM 05/09/16 Reported Aspirin Chewable (Aspirin) 81 Mg Chew 81 Mg PO QAM 03/30/16 Reported Protonix (Pantoprazole Sodium) 40 Mg Tab 40 Mg PO QAM 03/30/16 Reported Lipitor (Atorvastatin Calcium) 10 Mg Tab 10 Mg PO QPM 03/30/16 Reported Levothyroxine Sodium 88 Mcg Tab 88 Mcg PO QAM 03/30/15 Reported Polyethylene Glycol 3350 1 Pow Pow 1 Dose PO QAM PRN 05/05/14 Reported Nolvadex (Tamoxifen Citrate) 20 Mg Tab 20 Mg PO QAM 01/30/14 Reported Ambien (Zolpidem Tartrate) 10 Mg Tab 10 Mg PO HS PRN 09/03/12 Reported Vital Signs Weight (Kilograms): 90.91 Height (Feet): 5 Height (Inches): 6 Date Time Temp Pulse Resp B/P (MAP) Pulse Ox O2 Delivery O2 Flow Rate FiO2 02/27/18 09:13 36.8 81 20 141/85 (103) 97 Room Air Physical Exam General Appearance: WD/WN, no apparent distress Respiratory/Chest: Auscultation: breath sounds normal Cardiovascular: Heart Auscultation: RRR Abdomen: Bowel Sounds: normal Inspection & Palpation: soft, non-distended, no tenderness, guarding & rebound Assessment and Plan Assessment: 52 yo CF who presents for EGD secondary to Dysphagia, history of Schatzki's ring and GERD. Plan: Proceed with EGD.
--- NOTE | 2018-02-27 09:59 | GI REPORT ---
Patient Name: Abril Estrada Procedure Date: 02/27/2018 9:38 AM Date of : 1965 Admit Type: Outpatient Age: 52 Gender: Female Attending MD: Prasad Churchill DO Procedure: Upper GI endoscopy Providers: Prasad Churchill DO Referring MD: Trang Sellers Indications: Dysphagia, Gastro-esophageal reflux disease Medicines: Monitored Anesthesia Care Complications: No immediate complications. Estimated Blood Loss: Estimated blood loss: none. Procedure: Pre-Anesthesia Assessment: - Prior to the procedure, a History and Physical was performed, and patient medications and allergies were reviewed. The patient's tolerance of previous anesthesia was also reviewed. The risks and benefits of the procedure and the sedation options and risks were discussed with the patient. All questions were answered, and informed consent was obtained. Prior Anticoagulants: The patient has taken aspirin, last dose was 1 day prior to procedure. ASA Grade Assessment: II - A patient with mild systemic disease. After reviewing the risks and benefits, the patient was deemed in satisfactory condition to undergo the procedure. After obtaining informed consent, the endoscope was passed under direct vision. Throughout the procedure, the patient's blood pressure, pulse, and oxygen saturations were monitored continuously. The Scope was introduced through the mouth, and advanced to the second part of duodenum. The upper GI endoscopy was accomplished without difficulty. The patient tolerated the procedure well. Findings: A non-obstructing Schatzki ring (acquired) was found at the gastroesophageal junction. A TTS dilator was passed through the scope. Dilation with an 18-19-20 mm balloon dilator was performed to 20 mm. A small hiatal hernia was present. Localized mild inflammation characterized by erythema was found in the gastric antrum. Biopsies were taken with a cold forceps for histology. The examined duodenum was normal. Impression: - Non-obstructing Schatzki ring. Dilated. - Small hiatal hernia. - Gastritis. Biopsied. - Normal examined duodenum. Recommendation: - Resume previous diet. - Continue present medications. - Await pathology results. - Return to primary care physician as previously scheduled. Prasad Churchill DO 02/27/2018 9:59:30 AM This report has been signed electronically. Note Initiated On: 02/27/2018 9:38 AM Number of Addenda: 0 I attest to the content of the Intraoperative Record and orders documented therein, exceptions below {[id number]}
--- NOTE | 2018-02-27 10:01 | Discharge Instructions ---
Endoscopy Patient Instructions Date / Procedure(s) Performed Feb 27, 2018. EGD Allergy Information Coded Allergies: Adhesives (Verified Adverse Reaction, Intermediate, TEGADERM TAPE-BLISTERS , 02/27/18) Hydrocodone (Verified Adverse Reaction, Intermediate, BODY TREMBLING, ) Flu Virus Vaccine (Verified Adverse Reaction, Mild, VOMITING, 02/27/18) Oxycodone (Verified Adverse Reaction, Mild, VOMITING, 02/27/18) Discharge Date / Findings Feb 27, 2018. Schatzki's ring s/p dilation Hiatal hernia Gastritis s/p biopsies Medication Instructions Stopped Medication(s): ASPIRIN AST DOSE 02/26/18 OK to resume all medications today as prescribed Reported Home Medications Medications Dose Route/Sig Max Daily Dose Days Date Category Vitamin D 07588 Unit (Ergocalciferol) 50,000 Unit Cap 50,000 Unit PO WK 10/04/17 Reported Vitamin B-12 (Cyanocobalamin) 1,000 Mcg Tab 1,000 Mcg PO QAM 05/09/16 Reported Aspirin Chewable (Aspirin) 81 Mg Chew 81 Mg PO QAM 03/30/16 Reported Protonix (Pantoprazole Sodium) 40 Mg Tab 40 Mg PO QAM 03/30/16 Reported Lipitor (Atorvastatin Calcium) 10 Mg Tab 10 Mg PO QPM 03/30/16 Reported Levothyroxine Sodium 88 Mcg Tab 88 Mcg PO QAM 03/30/15 Reported Polyethylene Glycol 3350 1 Pow Pow 1 Dose PO QAM PRN 05/05/14 Reported Nolvadex (Tamoxifen Citrate) 20 Mg Tab 20 Mg PO QAM 01/30/14 Reported Ambien (Zolpidem Tartrate) 10 Mg Tab 10 Mg PO HS PRN 09/03/12 Reported Provider Instructions Activity Restrictions - No exercising or heavy lifting for 24 hours. - Do not drink alcohol the day of the procedure. - Do not drive a car or operate machinery until the day after the procedure. - Do not make any important decisions or sign important papers in 24 hours after the procedure. Following Day: - Return to full activity which may include returning to work/school. Diet Start your diet with liquids and light foods (jello, soup, juice, toast). Then eat your usual diet if not nauseated. Treatment For Common After Affects For mild abdominal pain, bloating, or excessive gas: - Rest - Eat lightly - Lie on right side Follow-Up Information Follow-up with HANNAH SHEN NP as scheduled Anesthesia Information What You Should Know You have had a procedure that required some medicine to reduce anxiety and discomfort. This treatment is called moderate sedation. After receiving the treatment, you may be sleepy, but you will be able to breathe on your own. The effects of the treatment may last for several hours. Follow these instructions along with Activity/Diet recommendations noted above: * Do NOT do anything where dizziness or clumsiness would be dangerous. * Rest quietly at home today, then you can be up and about tomorrow. * Have a responsible person stay with you the rest of today. * You may have had an I.V. today. If so, you may take the dressing off later today. Recommendations Call your doctor if: * Trouble breathing * Continuous vomiting for more than 24 hours * Temperature above 101 degrees * Severe abdominal pain or bloating * Pain not relieved by pain medicine ordered * There is increased drainage or redness from any incision * A large amount of rectal bleeding greater than 2-3 tablespoons. (If you had a polyp/s removed or have hemorrhoids, a small amount of blood - from the rectum is to be expected.) * You have any unanswered questions or concerns. IN THE EVENT OF A SERIOUS EMERGENCY, GO TO THE NEAREST EMERGENCY ROOM Your discharge instructions were prepared by provider Prasad Churchill. Patient Instructions Signature Page Abril Estrada Patient (or Guardian) Signature/Date: I have read and understand the instructions given to me by my caregivers. Caregiver/RN/Doctor Signature/Date: The above-named patient and/or guardian has received patient instructions on this date. + Original Patient Signature Page (only) stays with chart. Please make copy for patient.
--- NOTE | 2018-02-27 10:18 | Anesthesiology Progress Note ---
Anesthesia Post Op Note Date & Time Feb 27, 2018 at 10:18 Vital Signs Pain Intensity: 0 Vital Signs Past 12 Hours Date Time Temp Pulse Resp B/P (MAP) Pulse Ox O2 Delivery O2 Flow Rate FiO2 02/27/18 10:01 80 16 118/72 (87) 96 Room Air 02/27/18 09:13 36.8 81 20 141/85 (103) 97 Room Air Notes Mental Status: alert / awake / arousable, participated in evaluation Pt Amnestic to Procedure: Yes Nausea / Vomiting: adequately controlled Pain: adequately controlled Airway Patency, RR, SpO2: stable & adequate BP & HR: stable & adequate Hydration State: stable & adequate Anesthetic Complications: no major complications apparent
[2018-02-27 10:31] VITALS: BP 130/86; PULSE 69; O2SAT 98
== END | disposition home or self-care (01) ==
LOC: C.GI 08:37
PROVIDERS: ATTEND Internal Medicine
DX: K22.2 Esophageal obstruction (principal); K21.9 Gastro-esophageal reflux disease without esophagitis; K44.9 Diaphragmatic hernia without obstruction or gangrene; R13.10 Dysphagia, unspecified; F41.9 Anxiety disorder, unspecified; F32.9 Major depressive disorder, single episode, unspecified; Z88.5 Allergy status to narcotic agent; Z88.7 Allergy status to serum and vaccine; Z79.82 Long term (current) use of aspirin; E78.5 Hyperlipidemia, unspecified; E66.9 Obesity, unspecified; Z85.3 Personal history of malignant neoplasm of breast; K29.70 Gastritis, unspecified, without bleeding

== ENCOUNTER → 2018-03-01 | Outpatient (CLI) | payer OTHER ==
[~2018-03-01] MED LIST changes: +FLAX1CAP11 PO; -LIDOCAINE HCL 2% 2 ML VIAL (20MG/ML) ONE; -PROPOFOL IV EMULSION 10 MG/ML 20 ML VIAL ONE; -SODIUM CHLORIDE 0.9% 500ML 500 ML IV ONE
--- NOTE | 2018-03-01 13:11 | DIAGNOSTIC IMAGING REPORT ---
LUMBAR SPINE W/O CONTRAST CLINICAL HISTORY: 52 years-old Female with DISC HERNIATION. Chronic low back and left hip pain COMPARISON: Lumbar spine radiographs 02/20/2018, bone scan 09/10/2017, CT abdomen and pelvis 01/01/2015 TECHNIQUE: Multiplanar, multi sequence MRI of the lumbar spine was performed without intravenous contrast. FINDINGS: The telegraph repeater technician localizer images demonstrate no gross abnormality. No aortic aneurysm or adenopathy. The imaged iliac vessels appear unremarkable. Paraspinal tissues appear to be within normal limits as well. There is no acute fracture, subluxation or focal bone marrow edema identified. Conus medullaris terminates at T12-L1. Signal within the imaged thoracic spinal cord appears normal. Cauda equina are also within normal limits. T12-L1: No central canal or neural foraminal stenosis. L1-L2: Mild intervertebral disc space narrowing with spondylitic spurring and circumferential annular disc bulge with central annular fissure. Mild facet arthrosis. There is flattening of the ventral thecal sac without significant central canal or foraminal narrowing identified. L2-L3: Mild intervertebral disc space narrowing with spondylitic spurring. Mild facet arthrosis with ligamentum flavum thickening. 3 mm synovial cyst posterior to the left facet. Circumferential annular disc bulge favoring the right lateral recess and nectar foraminal distribution. Probable central annular fissure. There is flattening of the ventral thecal sac without significant central canal narrowing. Neuroforamina also appear patent. L3-L4: Small circumferential annular disc bulge with mild facet arthrosis and ligamentum flavum thickening. AP dimension of the thecal sac measures 9 mm. There is mild central canal narrowing without foraminal stenosis. L4-L5: Small circumferential annular disc bulge with ligamentum flavum thickening and mild facet arthrosis. Annular fissure of the right extraforaminal distribution. Flattening of the ventral thecal sac without significant central canal narrowing. There is mild narrowing of the bilateral inferior neural foramina. 6 mm synovial cyst posterior to the left facet. L5-S1: Small circumferential annular disc bulge with mild facet arthrosis and ligamentum flavum thickening. There is abutment without displacement of the left S1 nerve root. No significant foraminal narrowing. IMPRESSION: 1. Mild annular disc bulging with annular fissuring is noted at several levels as detailed above. 2. Mild central canal and mild bilateral inferior neuroforaminal narrowing at L4-L5. 3. No high-grade central canal or foraminal narrowing. 4. Multilevel mostly mild facet arthrosis and ligamentum flavum thickening. The above report was generated using voice recognition software. It may contain grammatical, syntax or spelling errors. Electronically signed by: Abel Parikh M.D. 03/01/2018 1:10 PM Dictated Date/Time: 03/01/2018 12:59 PM
== END | disposition home or self-care (01) ==
LOC: C.MRIBC 11:40
PROVIDERS: ATTEND Orthopaedic Surgery Orthopaedic Surgery of the Spine
DX: M51.26 Other intervertebral disc displacement, lumbar region (principal)

== ENCOUNTER 2021-09-24 12:59 | Observation (INO) ==
[2021-09-24 14:12] LABS: Basophils # (auto) 0.01 K/uL (0-0.2); Basophils % (auto) 0.1 %; Hematocrit (blood only) 41.4 % (37-47); Hemoglobin 13.8 g/dL (12.0-16.0); Immature Granulocytes # (auto) 0.03 K/uL (0.00-0.02); Immature Granulocytes % (auto) 0.3 %; Lymphocytes # (auto) 3.39 K/uL (1.2-3.4); Lymphocytes % (auto) 33.3 %; Mean Corpuscular Hemoglobin 31.2 pg (25-34); Mean Corpuscular Hgb Conc 33.3 g/dL (32-36); Mean Corpuscular Volume 93.5 fL (80-100); Mean Platelet Volume 10.1 fL (7.4-10.4); Monocytes # (auto) 0.89 K/uL (0.11-0.59); Monocytes % (auto) 8.7 %; Neutrophils # (auto) 5.76 K/uL (1.4-6.5); Neutrophils % (auto) 56.6 %; Platelet Count 296 K/uL (130-400); RDW Coefficient of Variation 13.8 % (11.5-14.5); RDW Standard Deviation 47.3 fL (36.4-46.3); Red Blood Count 4.43 M/uL (4.2-5.4); White Blood Count 10.18 K/uL (4.8-10.8)
[2021-09-24 14:30] LABS: Albumin Globulin Ratio 1.4 (0.9-2); Albumin Level 4.3 gm/dl (3.4-5.0); BUN Creatinine Ratio 14.8 (10-20); Bilirubin,Total 0.5 mg/dl (0.2-1.0); Calcium 9.6 mg/dl (8.5-10.1); Est GFR (African American) 95.4 ml/min; Est GFR (Non-African American) 82.3 ml/min; Globulin 3.1 gm/dl (2.5-4.0); Total Protein 7.4 gm/dl (6.0-8.3)
--- NOTE | 2021-09-24 15:13 | Ultrasound Report ---
US breast RT limited CLINICAL HISTORY: right breast wound COMPARISON STUDY: None. FINDINGS: Real-time sonographic imaging of the right medial breast was performed with business development representative images submitted. No fluid collections to suggest an abscess. No mass identified on limited imaging. IMPRESSION: No fluid collections within the right breast to suggest an abscess. ACT 112: Negative or not required by law. Electronically signed by: Yao Bonilla M.D. 09/24/2021 3:12 PM
--- NOTE | 2021-09-24 15:17 | Emergency Department Note ---
History of Present Illness General Chief complaint: Breast Pain/Problems Stated complaint: REDNESS, PAIN ON RT BREAST Time Seen by Provider: 09/24/21 15:05 History of Present Illness Maximum Pain Intensity: 2 This is a 56-year-old female with a history of breast cancer, right-sided, that presents to the emergency department via private vehicle with complaints of "redness, pain on right breast". The patient notes that she was here last Sunday for evaluation of a blister of the right breast. There was no trauma or injury. She states that she was prescribed cephalexin and has been compliant with this. She has been applying triple antibiotic ointment to the area. She denies any fevers or chills. She does note a very minor amount of yellow drainage from the area. Current discomfort 09/08. Patient does note that she is taking tamoxifen 10 mg daily. She states that the area involved now appears to be enlarging as is the discomfort. Home Medications Medication Instructions Recorded Confirmed Type cyanocobalamin (vitamin B-12) 1,000 mcg PO QAM 01/03/19 09/24/21 History 1,000 mcg tablet (Vitamin B-12) tamoxifen 20 mg tablet 20 mg PO QAM 01/03/19 09/24/21 History naproxen 500 mg tablet 500 mg PO BID #180 tab 04/11/21 09/24/21 Rx levothyroxine 112 mcg tablet 112 mcg PO DAILY #90 tab 04/14/21 09/24/21 Rx zolpidem 10 mg tablet 10 mg PO HS PRN #30 tab 06/30/21 09/24/21 Rx albuterol sulfate 90 mcg/actuation See Rx Instructions INHALATION 08/10/21 09/24/21 Rx aerosol inhaler (Ventolin HFA) .COMPLEX PRN #8.5 g cholecalciferol (vitamin D3) 125 5,000 unit PO DAILY 09/24/21 09/24/21 History mcg (5,000 unit) capsule pantoprazole 40 mg tablet,delayed 40 mg PO DAILY 09/24/21 09/24/21 History release Allergies Allergy/AdvReac Type Severity Reaction Status Date / Time hydromorphone [From Dilaudid] AdvReac Severe MAKES Verified 09/24/21 15:37 OXYGEN DROP PER PT adhesive AdvReac Intermediate TEGADERM Verified 09/24/21 15:37 TAPE-BLISTERS hydrocodone AdvReac Intermediate BODY Verified 09/24/21 15:37 TREMBLING Influenza Virus Vaccines AdvReac Intermediate Vomiting Verified 09/24/21 15:37 oxycodone AdvReac Mild VOMITING Verified 09/24/21 15:37 Tegaderm Film 1-3/4"x1-3/4" AdvReac Intermediate SKIN Uncoded 09/24/21 15:37 [place] BLISTERED Flu Virus Vaccine AdvReac Mild VOMITING Uncoded 09/24/21 15:37 Past Med/Surg History Medical History Breast cancer (03/17/13) s/p Rt lumpectomy + chemo, radiation GERD (gastroesophageal reflux disease) History of migraine Hypercholesterolemia Hypothyroidism Insomnia Migraine headache Nasal septal deviation Rheumatoid arthritis Schatzki's ring UTI (urinary tract infection) current - reason for abx Surgical History History of ankle surgery Left History of breast biopsy History of colonoscopy History of dilation and curettage History of esophageal dilatation History of esophagogastroduodenoscopy (EGD) History of lumpectomy of right breast History of repair of rectocele History of surgery on wrist Right History of total abdominal hysterectomy History of tubal ligation History of vascular access device removed Family History Grandmother Breast cancer Aunt Ovarian cancer Breast cancer Diabetes Mother Diabetes Hypertension Brother Hypertension Uncle Diabetes Other No family history of adverse response to anesthesia Denies family history of Prostate cancer Myocardial infarction Colorectal cancer Social History Smoking Status: Never smoker Second Hand Exposure: No; Hx Alcohol Use: No Hx Substance Use: No Preferred Language: Yakut Communication Ability: Effective Visual Impairment: No Limitations Hearing Ability: Normal Welder Gas Required: No Beliefs That Will Affect Care: None marital status: Single Current Living Situation: Significant Other current occupational status: employed 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 Feels Safe at Home: Yes Childhood Exposure to Second-Hand Smoke: Yes Dental Care, Regularly: Yes Physical Activity Frequency: 5-6 Times per Week Seatbelt Use: always Sunscreen Use: Yes Assistive Devices: Glasses Review of Systems A total of 10 systems reviewed and were otherwise negative Physical Exam Vital Signs Vital Signs - 24 hr 09/24/21 13:13 09/24/21 14:40 Temperature 36.8 C Temperature Source Oral Pulse Rate 107 H Pulse Rate [Right Finger] 85 Pulse Rhythm [Right Finger] Regular Pulse Strength [Right Finger] Normal Respiratory Rate 16 20 Respiratory Effort / Characteristics Non-Labored Spontaneous Non-Labored Spontaneous Respiratory Depth Normal Normal Respiratory Pattern Regular Regular Blood Pressure 141/81 H Blood Pressure [Right Arm] 169/92 H Blood Pressure Mean 101 Blood Pressure Mean [Right Arm] 117 Blood Pressure Position Sitting Blood Pressure Position [Right Arm] Sitting Pulse Oximetry 96 97 Oxygen Delivery Method Room Air Room Air Sepsis Recent Fever Within 48 Hours No Sepsis New/Unexplained Change in Mental Status No Sepsis Action Taken by Nursing No Action Required VITAL SIGNS - Vital signs and nursing notes were reviewed. Stable and afebrile. GENERAL -56-year-old female appearing her stated age who is in no acute distress. Communicates well with provider and answers questions appropriately. 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 Just medial to the areola region there is erythema with a central area consistent with a wound with biofilm within this area. No fluctuance. Moderate tenderness. No drainage. HEAD - NC/AT. NECK - No nuchal rigidity. LUNGS - Chest wall symmetric without accessory muscle use, intercostals retractions, or central cyanosis. Normal vesicular breath sounds CTA B/L. No wheezes, rales, or rhonchi appreciated. CARDIAC - RRR with S1/S2. No murmur, rubs, or gallops appreciated. NEUROLOGIC - Cranial nerves II through XII grossly intact. PSYCH - A&O, and cooperates fully with examiner. Pt is very pleasant and interacts well with examiner. Course Administered Medications Vancomycin HCl 1,750 mg/ (Sodium Chloride) 535 mls @ 200 mls/hr IV NOW ONE Stop: 09/24/21 17:58 Last Admin: 09/24/21 15:36 Dose: 200 mls/hr Documented by: [id number] Medical Decision Making Laboratory Data Result diagrams: 09/24/21 14:00 09/24/21 14:00 Lab Results 09/24/21 09/24/21 09/24/21 Range/Units 14:00 14:00 15:15 WBC 10.18 (4.8-10.8) K/uL RBC 4.43 (4.2-5.4) M/uL Hgb 13.8 (12.0-16.0) g/dL Hct 41.4 (37-47) % MCV 93.5 (80-100) fL MCH 31.2 (25-34) pg MCHC 33.3 (32-36) g/dL RDW Std Deviation 47.3 H (36.4-46.3) fL RDW Coeff of Mukund 13.8 (11.5-14.5) % Plt Count 296 (130-400) K/uL MPV 10.1 (7.4-10.4) fL Immature Gran % (Auto) 0.3 % Neut % (Auto) 56.6 % Lymph % (Auto) 33.3 % Hart % (Auto) 8.7 % Eos % (Auto) 1.0 % Baso % (Auto) 0.1 % Neut # (Auto) 5.76 (1.4-6.5) K/uL Lymph # (Auto) 3.39 (1.2-3.4) K/uL Hart # (Auto) 0.89 H (0.11-0.59) K/uL Eos # (Auto) 0.10 (0-0.5) K/uL Baso # (Auto) 0.01 (0-0.2) K/uL Immature Gran # (Auto) 0.03 H (0.00-0.02) K/uL Sodium 139 (136-145) mmol/L Potassium 4.0 (3.5-5.1) mmol/L Chloride 103 (98-107) mmol/L Carbon Dioxide 27 (21-32) mmol/L Anion Gap 9 (3-11) BUN 12 (6-23) mg/dl Creatinine 0.81 (0.6-1.2) mg/dl Est Cr Clr Drug Dosing 91.0 ml/min Est GFR ( Amer) 95.4 ml/min Est GFR (Non-Af Amer) 82.3 ml/min BUN/Creatinine Ratio 14.8 (10-20) Glucose 84 (70-99(Fasting)) mg/dl Calcium 9.6 (8.5-10.1) mg/dl Total Bilirubin 0.5 (0.2-1.0) mg/dl AST 37 (13-39) U/L ALT 31 (7-52) U/L Alkaline Phosphatase 91 (34-104) U/L Total Protein 7.4 (6.0-8.3) gm/dl Albumin 4.3 (3.4-5.0) gm/dl Globulin 3.1 (2.5-4.0) gm/dl Albumin/Globulin Ratio 1.4 (0.9-2) SARS-CoV-2, RNA, NAAT NEGATIVE (NEGATIVE) Imaging Data Radiologist's Impression: Breast Ultrasound 09/24/21 13:18 US breast RT limited CLINICAL HISTORY: right breast wound COMPARISON STUDY: None. FINDINGS: Real-time sonographic imaging of the right medial breast was performed with benefits representative images submitted. No fluid collections to suggest an abscess. No mass identified on limited imaging. IMPRESSION: No fluid collections within the right breast to suggest an abscess. ACT 112: Negative or not required by law. Electronically signed by: Yao Bonilla M.D. 09/24/2021 3:12 PM MDM Narrative Patient was seen and evaluated as above in room B02. Review was performed of nursing notes and vital signs. I did review pertinent previous visits and patient history. After obtaining a thorough history and physical examination the above work up was performed. Patient presents to us today for evaluation of worsening redness and swelling to the right breast. She notes she was here about a week ago and prescribed Keflex. She states that the area was opened/drained. I did review the wound culture and at this time there was no bacteria growing out on the culture. Options of care were discussed with the patient. IV access was established. Labs were drawn. Patient does present during a period of high volume and acuity during the COVID-19 pandemic. Patient already had laboratory studies performed an ultrasound prior to me seeing the patient. No leukocytosis or concerning anemia. No emergent metabolic disturbance. Covid testing negative. I did review her previous visit from 2013 when she was admitted then transferred for the infection. She received vancomycin at that time and had done well. Noting that she is already been on cephalexin for the past week I did find that MRSA coverage via vancomycin would be reasonable. No allergy noted to this. This was ordered. I also discussed the case with the attending physician as well as the hospitalist. Given the worsening symptoms despite outpatient antibiotics I do believe that further evaluation in the inpatient setting is warranted. Alicia shin amenable to plan of care. GCS: 15 In the evaluation and treatment of this patient the following differential diagnoses were entertained: Cellulitis, abscess, return of malignancy, among others. Impression & Plan Cellulitis of right breast Discharge Plan Visit Data Chief Complaint: Breast Pain/Problems Stated Complaint: REDNESS, PAIN ON RT BREAST ED Provider: Eliseo Bernard ED Midlevel Provider: Kyaw Acuna Discharge Problem: Cellulitis of right breast Patient Disposition: Admitted As Inpatient Condition: Good Forms Stand Alone Forms: [facility], Virtual Emergency Department, Important Visit Information Prescriptions Prescriptions: No Action levothyroxine 112 mcg tablet 112 mcg PO DAILY Qty: 90 RF: 1 zolpidem 10 mg tablet 10 mg PO HS PRN (Reason: sleep) Qty: 30 RF: 2 albuterol sulfate [Ventolin HFA] 90 mcg/actuation HFA aerosol inhaler See Rx Instructions inhalation .COMPLEX PRN (Reason: shortness of breath or wheezing) Qty: 8.5 RF: 0 naproxen 500 mg tablet 500 mg PO BID Qty: 180 RF: 3 cyanocobalamin (vitamin B-12) [Vitamin B-12] 1,000 mcg Tablet 1,000 mcg PO QAM RF: 0 tamoxifen 20 mg tablet 20 mg PO QAM RF: 0 cholecalciferol (vitamin D3) 125 mcg (5,000 unit) capsule 5,000 unit PO DAILY RF: 0 pantoprazole 40 mg tablet,delayed release (DR/EC) 40 mg PO DAILY RF: 0 Referrals Referrals: Flip Rogers III, CRNP [Primary Care Provider] -
[2021-09-24] MEDS ORDERED: VANCOMYCIN CONSULT ACTIVE PRN (15:18)
[2021-09-24] MEDS ORDERED: VANCOMYCIN HCL 1,750 MG in SODIUM CHLORIDE 0.9% 500 ML IV ONE (15:18)
--- NOTE | 2021-09-24 16:04 | History & Physical Report ---
Date of Service September 24, 2021 Assessment & Plan (1) Cellulitis of right breast: Plan: Difficult to exclude underlying breast lesion which is certainly concerning given her history. Continue vancomycin and add Unasyn for broad spectrum coverage - failed Keflex as outpatient No abscess on US Consult surgery for consideration of biopsy (2) Hypothyroidism: Plan: TSH WNL in May Continue levothyroxine 112 mcg PO daily (3) Insomnia: Plan: Continue Ambien 10mg PO HS PRN (4) History of breast cancer: Plan: Invasive ductal carcinoma s/p right lumpectomy + chemo, radiation Plan: VTE Prophylaxis - low risk Diet - regular Disposition - observation status to med/surg Admission and Anticipated Discharge Date Admission Date: Sep 24, 2021 History of Present Illness Chief Complaint: Right breast erythema Primary Care Provider: Flip Rogers III, CRNP Abril Estrada is a 56 year old female who presents to the ER with erythema on her right breast. Initially started as a blister on 09/17 for which she was seen in the ER. At that time she was started on Keflex and has been complaint with taking this. The erythema has progressed despite being on this. She denies any fever or chills. She has a history of invasive ductal carcinoma in this breast s/p lumpectomy, chemotherapy and radiation in 2012. She has been on tamoxifen since this time but recently discontinued due to superficial venous thrombosis in her leg. In the ER her presentation was concerning for failure of Keflex treatment for cellulitis therefore she was started on IV vancomycin and referred to medicine for admission and ongoing management of this. Allergies Allergy/AdvReac Type Severity Reaction Status Date / Time hydromorphone [From Dilaudid] AdvReac Severe MAKES Verified 09/24/21 15:37 OXYGEN DROP PER PT adhesive AdvReac Intermediate TEGADERM Verified 09/24/21 15:37 TAPE-BLISTERS hydrocodone AdvReac Intermediate BODY Verified 09/24/21 15:37 TREMBLING Influenza Virus Vaccines AdvReac Intermediate Vomiting Verified 09/24/21 15:37 oxycodone AdvReac Mild VOMITING Verified 09/24/21 15:37 Tegaderm Film 1-3/4"x1-3/4" AdvReac Intermediate SKIN Uncoded 09/24/21 15:37 [place] BLISTERED Flu Virus Vaccine AdvReac Mild VOMITING Uncoded 09/24/21 15:37 Home Medications Medication Instructions Recorded Confirmed Type cyanocobalamin (vitamin B-12) 1,000 mcg PO QAM 01/03/19 09/24/21 History 1,000 mcg tablet (Vitamin B-12) tamoxifen 20 mg tablet 20 mg PO QAM 01/03/19 09/24/21 History naproxen 500 mg tablet 500 mg PO BID #180 tab 04/11/21 09/24/21 Rx levothyroxine 112 mcg tablet 112 mcg PO DAILY #90 tab 04/14/21 09/24/21 Rx zolpidem 10 mg tablet 10 mg PO HS PRN #30 tab 06/30/21 09/24/21 Rx albuterol sulfate 90 mcg/actuation See Rx Instructions INHALATION 08/10/21 09/24/21 Rx aerosol inhaler (Ventolin HFA) .COMPLEX PRN #8.5 g cholecalciferol (vitamin D3) 125 5,000 unit PO DAILY 09/24/21 09/24/21 History mcg (5,000 unit) capsule pantoprazole 40 mg tablet,delayed 40 mg PO DAILY 09/24/21 09/24/21 History release Past Med/Surg History Medical History Breast cancer (03/17/13) s/p Rt lumpectomy + chemo, radiation GERD (gastroesophageal reflux disease) History of migraine Hypercholesterolemia Hypothyroidism Insomnia Migraine headache Nasal septal deviation Rheumatoid arthritis Schatzki's ring UTI (urinary tract infection) current - reason for abx Surgical History History of ankle surgery Left History of breast biopsy History of colonoscopy History of dilation and curettage History of esophageal dilatation History of esophagogastroduodenoscopy (EGD) History of lumpectomy of right breast History of repair of rectocele History of surgery on wrist Right History of total abdominal hysterectomy History of tubal ligation History of vascular access device removed Family History Grandmother Breast cancer Aunt Ovarian cancer Breast cancer Diabetes Mother Diabetes Hypertension Brother Hypertension Uncle Diabetes Other No family history of adverse response to anesthesia Denies family history of Prostate cancer Myocardial infarction Colorectal cancer Social History Smoking Status: Never smoker Second Hand Exposure: Yes; Do You Dip or Chew Tobacco: No; Tobacco Cessation Education Requested by Patient: No Hx Alcohol Use: No Hx Substance Use: No Preferred Language: Burmese Communication Ability: Effective Visual Impairment: No Limitations Hearing Ability: Normal Catalyst Impregnator Required: No Beliefs That Will Affect Care: None marital status: Single Current Living Situation: Significant Other current occupational status: employed 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 Other Information That Helps Us Care for You: No Feels Safe at Home: Yes Safety Concerns: Feels Safe At This Time Childhood Exposure to Second-Hand Smoke: Yes Dental Care, Regularly: Yes Physical Activity Frequency: 5-6 Times per Week Seatbelt Use: always Sunscreen Use: Yes Assistive Devices: Glasses Review of Systems Review of Systems: All systems reviewed & are unremarkable except as noted in HPI & below Physical Exam Constitutional: WD/WN, vitals as above Eyes: + anicteric sclerae; normal pupil size Respiratory: normal respiratory effort, lungs clear to auscultation Cardiovascular: RRR, no murmur, no edema Chest (Breasts): Breast: + skin thickening (erythema from 2-7'o'clock with central ulcer) and + breast tenderness (right); no axillary mass Gastrointestinal (Abdomen): Inspection/Auscultation: normal bowel sounds Percussion/Palpation: abdomen soft; abdomen nontender, no guarding and abdomen not rigid Musculoskeletal: no cyanosis or clubbing, extremities motor strength 5/5 Neurologic: moves all extremities and awake; not confused Psychiatric: A+Ox3, euthymic affect Results & Data Results & Data ([facility]) Vital Signs (Past 12 Hours) Vital Signs Temp Pulse Pulse Resp BP BP Pulse Ox 09/24/21 14:40 85 20 169/92 H 97 09/24/21 13:13 36.8 C 107 H 16 141/81 H 96 Laboratory Results Abnormal lab results 09/24/21 Range/Units 14:00 RDW Std Deviation 47.3 H (36.4-46.3) fL [place] # (Auto) 0.89 H (0.11-0.59) K/uL Immature Gran # (Auto) 0.03 H (0.00-0.02) K/uL Diagnostic Findings US breast RT limited CLINICAL HISTORY: right breast wound COMPARISON STUDY: None. FINDINGS: Real-time sonographic imaging of the right medial breast was performed with key account representative images submitted. No fluid collections to suggest an abscess. No mass identified on limited imaging. IMPRESSION: No fluid collections within the right breast to suggest an abscess. Medications Administered ER Medications Given: Vancomycin 1750mg IV Code Status & VTE Plan Code Status Full VTE Prophylaxis Plan VTE Prophylaxis will be ordered: No Reason for no VTE drug order: Treatment not indicated Reason for no VTE mechanical prophylaxis: Treatment not indicated PG Care Time/CCT Total # of Minutes Spent Total Time Spent with Patient: Total time spent is greater than 50% in coordination of care (as documented) at patient's floor/unit and/or counseling patient: Coding Level of Care Code INT OBSERVATION CARE 50M LVL 2 Diagnoses Cellulitis of right breast N61.0 Hypothyroidism E03.8; E06.3 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
[2021-09-24] MEDS ORDERED: POLYETHYLENE (MIRALAX) 17 GM PACK PO PRN (18:40)
[2021-09-24] MEDS ORDERED: ACETAMINOPHEN 325 MG TAB PO PRN (18:40)
--- NOTE | 2021-09-24 19:43 | Pharmacy Report ---
Pharmacy Vanc AUC Short Note - Date of Service September 24, 2021 - Assessment & Plan Assessment 56 year old F receiving Vancomycin for treatment of right breast cellulitis. * PMHx significant for breast cancer s/p lumpectomy, chemo and radiation * Afebrile and without leukocytosis. Renal fxn stable. Cultures pending. Plan Vancomycin * AUC/LA is the preferred PK/PD target for vancomycin * AUC guided dosing is effective and associated with decreased risk of nephro toxicity compared to traditional trough targets * Loading dose = 1750 mg IV x 1 * Maintenance dose = 1250 mg IV every 12 hours is predicted to achieve target AUC/LA of 400-600 mg/L.hr and may be associated with a 14 % risk of nephrotoxicity * Trough level ordered for 09/26/21 Pharmacy will continue to follow and will adjust dose/frequency as necessary. Thank you.
--- NOTE | 2021-09-24 19:56 | Surgery Consultation ---
Date of Consultation September 24, 2021 Assessment & Plan (1) Cellulitis of right breast: pt is a 56 year-old female who presents to Er with one week history right breast infection, IMP: right breast cellulitis, base on pt's H/P, most likely cellulitis on right breast, no indication for skin biopsy now, IV antibiotic tonight, pt can discharged home tomorrow with po antibiotic, augmentin for 10 ays, F/U DR. Ford breast surgeon next week, , sign off today, please call with questions, thanks, may need biopsy if the antibiotic is not working, Pt agrees with the plan, I answered all questions, History of Present Illness Reason for Consultation: right breast infection Requesting Physician: Nathanael Ashford MD Attending Physician: Nathanael Ashford MD History of Present Illness History of Present Illness General Chief complaint: Breast Pain/Problems Stated complaint: REDNESS, PAIN ON RT BREAST Time Seen by Provider: 09/24/21 15:05 History of Present Illness Maximum Pain Intensity: 2 This is a 56-year-old female with a history of breast cancer, right-sided, that presents to the emergency department via private vehicle with complaints of "redness, pain on right breast". The patient notes that she was here last Sunday for evaluation of a blister of the right breast. There was no trauma or injury. She states that she was prescribed cephalexin and has been compliant with this. She has been applying triple antibiotic ointment to the area. She denies any fevers or chills. She does note a very minor amount of yellow drainage from the area. Current discomfort 2/10. Patient does note that she is taking tamoxifen 10 mg daily. She states that the area involved now appears to be enlarging as is the discomfort. I ( Lauren Restrepo MD ) got a call for consult possible biopsy right breast infection, I reviewed pt's H/P, labs U/S study with pt, pt had I/D right breast with culture sent 1 week ago by ER attending, no bacteria found, on culture, pt had right breast cancer wit lumpectomy, lymph node biopsy 9 yeras ago, Home Medications Medication Instructions Recorded Confirmed Type cyanocobalamin (vitamin B-12) 1,000 mcg PO QAM 01/03/19 09/24/21 H istory 1,000 mcg tablet (Vitamin B-12) tamoxifen 20 mg tablet 20 mg PO QAM 01/03/19 09/24/21 History naproxen 500 mg tablet 500 mg PO BID #180 tab 04/11/21 09/24/21 Rx levothyroxine 112 mcg tablet 112 mcg PO DAILY #90 tab 04/14/21 Rx zolpidem 10 mg tablet 10 mg PO HS PRN #30 tab 06/30/21 09/24/21 Rx albuterol sulfate 90 mcg/actuation See Rx Instructions INHALATION 08/10/21 09/24/21 Rx aerosol inhaler (Ventolin HFA) .COMPLEX PRN #8.5 g cholecalciferol (vitamin D3) 125 5,000 unit PO DAILY 09/24/21 2 History mcg (5,000 unit) capsule pantoprazole 40 mg tablet,delayed 40 mg PO DAILY 09/24/21 History release Allergies Allergy/AdvReac Type Severity Reaction Status Date / Time hydromorphone [From Dilaudid] AdvReac Severe MAKES Verified 09/24/21 15:37 OXYGEN DROP PER PT adhesive AdvReac Intermediate TEGADERM Verified 09/24/21 15:37 TAPE-BLISTERS hydrocodone AdvReac Intermediate BODY Verified 09/24/21 15:37 TREMBLING Influenza Virus Vaccines AdvReac Intermediate Vomiting Verified 09/24/21 15:37 oxycodone AdvReac Mild VOMITING Verified 09/24/21 15:37 Tegaderm Film 1-3/4"x1-3/4" AdvReac Intermediate SKIN Uncoded 09/24/21 15:37 [place] BLISTERED Flu Virus Vaccine AdvReac Mild VOMITING Uncoded 09/24/21 15:37 Past Med/Surg History Medical History Breast cancer (03/17/13) s/p Rt lumpectomy + chemo, radiationGERD (gastroesophageal reflux disease) History of migraine Hypercholesterolemia Hypothyroidism Insomnia Migraine headache Nasal septal deviation Rheumatoid arthritis Schatzki's ring UTI (urinary tract infection) current - reason for abx Surgical History History of ankle surgery LeftHistory of breast biopsy History of colonoscopy History of dilation and curettage History of esophageal dilatation History of esophagogastroduodenoscopy (EGD) History of lumpectomy of right breast History of repair of rectocele History of surgery on wrist RightHistory of total abdominal hysterectomy History of tubal ligation History of vascular access device removed Family History Grandmother Breast cancerAunt Ovarian cancer Breast cancer DiabetesMother Diabetes HypertensionBrother HypertensionUncle DiabetesOther No family history of adverse response to anesthesia Denies family history of Prostate cancer Myocardial infarction Colorectal cancer Social History Smoking Status: Never smoker Second Hand Exposure: No; Hx Alcohol Use: No Hx Substance Use: No Preferred Language: German Communication Ability: Effective Visual Impairment: No Limitations Hearing Ability: Normal Customer Account Representative Required: No Beliefs That Will Affect Care: None marital status: Single Current Living Situation: Significant Other current occupational status: employed 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 Feels Safe at Home: Yes Childhood Exposure to Second-Hand Smoke: Yes Dental Care, Regularly: Yes Physical Activity Frequency: 5-6 Times per Week Seatbelt Use: always Sunscreen Use: Yes Assistive Devices: Glasses Review of Systems A total of 10 systems reviewed and were otherwise negative Allergies Allergy/AdvReac Type Severity Reaction Status Date / Time hydromorphone [From Dilaudid] AdvReac Severe MAKES Verified 09/24/21 15:37 OXYGEN DROP PER PT adhesive AdvReac Intermediate TEGADERM Verified 09/24/21 15:37 TAPE-BLISTERS hydrocodone AdvReac Intermediate BODY Verified 09/24/21 15:37 TREMBLING Influenza Virus Vaccines AdvReac Intermediate Vomiting Verified 09/24/21 15:37 oxycodone AdvReac Mild VOMITING Verified 09/24/21 15:37 Tegaderm Film 1-3/4"x1-3/4" AdvReac Intermediate SKIN Uncoded 09/24/21 15:37 IA BLISTERED Flu Virus Vaccine AdvReac Mild VOMITING Uncoded 09/24/21 15:37 Home Medications Medication Instructions Recorded Confirmed Type cyanocobalamin (vitamin B-12) 1,000 mcg PO QAM 01/03/19 09/24/21 History 1,000 mcg tablet (Vitamin B-12) tamoxifen 20 mg tablet 20 mg PO QAM 01/03/19 09/24/21 History naproxen 500 mg tablet 500 mg PO BID #180 tab 04/11/21 09/24/21 Rx levothyroxine 112 mcg tablet 112 mcg PO DAILY #90 tab 04/14/21 09/24/21 Rx zolpidem 10 mg tablet 10 mg PO HS PRN #30 tab 06/30/21 09/24/21 Rx albuterol sulfate 90 mcg/actuation See Rx Instructions INHALATION 08/10/21 09/24/21 Rx aerosol inhaler (Ventolin HFA) .COMPLEX PRN #8.5 g cholecalciferol (vitamin D3) 125 5,000 unit PO DAILY 09/24/21 09/24/21 History mcg (5,000 unit) capsule pantoprazole 40 mg tablet,delayed 40 mg PO DAILY 09/24/21 09/24/21 History release Patient History Medical History Breast cancer (03/17/13) s/p Rt lumpectomy + chemo, radiation GERD (gastroesophageal reflux disease) History of migraine Hypercholesterolemia Hypothyroidism Insomnia Migraine headache Nasal septal deviation Rheumatoid arthritis Schatzki's ring UTI (urinary tract infection) current - reason for abx Surgical History History of ankle surgery Left History of breast biopsy History of colonoscopy History of dilation and curettage History of esophageal dilatation History of esophagogastroduodenoscopy (EGD) History of lumpectomy of right breast History of repair of rectocele History of surgery on wrist Right History of total abdominal hysterectomy History of tubal ligation History of vascular access device removed Family History Grandmother Breast cancer Aunt Ovarian cancer Breast cancer Diabetes Mother Diabetes Hypertension Brother Hypertension Uncle Diabetes Other No family history of adverse response to anesthesia Denies family history of Prostate cancer Myocardial infarction Colorectal cancer Social History Smoking Status: Never smoker Second Hand Exposure: Yes; Do You Dip or Chew Tobacco: No; Tobacco Cessation Education Requested by Patient: No Hx Alcohol Use: No Hx Substance Use: No Preferred Language: German Communication Ability: Effective Visual Impairment: No Limitations Hearing Ability: Normal Customer Account Representative Required: No Beliefs That Will Affect Care: None marital status: Single Current Living Situation: Significant Other current occupational status: employed 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 Other Information That Helps Us Care for You: No Feels Safe at Home: Yes Safety Concerns: Feels Safe At This Time Childhood Exposure to Second-Hand Smoke: Yes Dental Care, Regularly: Yes Physical Activity Frequency: 5-6 Times per Week Seatbelt Use: always Sunscreen Use: Yes Assistive Devices: Glasses Physical Exam Constitutional: WD/WN, vitals as above Eyes: PERRL, conjunctivae normal, anicteric sclerae Neck: trachea midline, no thyromegaly Respiratory: normal respiratory effort, lungs clear to auscultation Cardiovascular: RRR, no murmur, no edema Chest (Breasts): Additional Comments: some redness at right breast at 1 [place], no tenderness, no drainage no palpable large lymph node at bilateral axillary, Gastrointestinal (Abdomen): normal bowel sounds, soft, nontender, no hepatosplenomegaly Musculoskeletal: no cyanosis or clubbing, extremities motor strength 5/5 Neurologic: patellar DTR's 2+ bilat, sensation intact Psychiatric: A+Ox3, euthymic affect Results & Data ([facility]) Vital Signs (Past 12 Hours) Vital Signs Temp Pulse Pulse Resp BP BP Pulse Ox 09/24/21 18:27 36.9 C 90 16 143/86 H 95 09/24/21 18:21 37 C 74 20 138/76 98 09/24/21 16:46 88 20 139/88 95 09/24/21 14:40 85 20 169/92 H 97 09/24/21 13:13 36.8 C 107 H 16 141/81 H 96 Laboratory Results Abnormal lab results 09/24/21 Range/Units 14:00 RDW Std Deviation 47.3 H (36.4-46.3) fL [place] # (Auto) 0.89 H (0.11-0.59) K/uL Immature Gran # (Auto) 0.03 H (0.00-0.02) K/uL Diagnostic Findings US breast RT limited CLINICAL HISTORY: right breast wound COMPARISON STUDY: None. FINDINGS: Real-time sonographic imaging of the right medial breast was performed with labor union business representative images submitted. No fluid collections to suggest an abscess. No mass identified on limited imaging. IMPRESSION: No fluid collections within the right breast to suggest an abscess.
[2021-09-24] MEDS: ZOLPIDEM TARTRATE 10 MG TAB PO PRN (22:39)
[2021-09-24] MEDS: AMPICILLIN/SULBACTAM SOD 3,000 MG in 0.9 % SODIUM CHLORIDE 100 ML IV SCH (23:12)
[2021-09-25] MEDS: VANCOMYCIN HCL 1,250 MG in SODIUM CHLORIDE 0.9% 250 ML IV SCH ×2 (03:54→15:15)
[2021-09-25] MEDS: AMPICILLIN/SULBACTAM SOD 3,000 MG in 0.9 % SODIUM CHLORIDE 100 ML IV SCH ×4 (05:34→23:30)
[2021-09-25] MEDS: LEVOTHYROXINE SODIUM 112 MCG TABLET PO SCH (05:34)
[2021-09-25 06:17] LABS: Basophils # (auto) 0.01 K/uL (0-0.2); Basophils % (auto) 0.1 %; Eosinophils # (auto) 0.16 K/uL (0-0.5); Eosinophils % (auto) 1.9 %; Immature Granulocytes # (auto) 0.03 K/uL (0.00-0.02); Immature Granulocytes % (auto) 0.4 %; Lymphocytes % (auto) 41.1 %; Mean Corpuscular Hemoglobin 29.9 pg (25-34); Mean Corpuscular Hgb Conc 31.6 g/dL (32-36); Mean Corpuscular Volume 94.5 fL (80-100); Monocytes # (auto) 0.54 K/uL (0.11-0.59); Monocytes % (auto) 6.5 %; Neutrophils # (auto) 4.13 K/uL (1.4-6.5); Platelet Count 254 K/uL (130-400); RDW Coefficient of Variation 13.9 % (11.5-14.5); RDW Standard Deviation 48.2 fL (36.4-46.3); Red Blood Count 4.02 M/uL (4.2-5.4); White Blood Count 8.27 K/uL (4.8-10.8)
[2021-09-25 06:46] LABS: BUN Creatinine Ratio 15.4 (10-20); Calcium 8.4 mg/dl (8.5-10.1); Creatinine Clr Calc Pharmacy 95.5 ml/min; Est GFR (African American) 99.9 ml/min; Est GFR (Non-African American) 86.2 ml/min; Potassium 4.1 mmol/L (3.5-5.1)
[2021-09-25] MEDS: CYANOCOBALAMIN (B-12) 500 MCG TABLET PO SCH (08:12)
[2021-09-25] MEDS: PANTOprazole 40 MG TAB PO SCH (08:12)
[2021-09-25] MEDS: CHOLECALCIFEROL 5,000 UNITS 125 MCG TAB PO SCH (08:12)
--- NOTE | 2021-09-25 08:36 | Hospitalist Progress Note ---
Date of Service September 25, 2021 Assessment & Plan (1) Cellulitis of right breast: Plan: Difficult to exclude underlying breast lesion which is certainly concerning given her history and cellulitis in SAME breast as prior invasive ductal ca s/p lumpectomy/chemo/xrt on Tamoxifen but recently stopped d/t superficial venous thrombus Seen in ER 09/17, cx obtained (no wbc/organisms, no growth on final) and sent on PO Keflex with increasing erythema Recent +flu 08/09/21 Placed on Vanco/Unasyn on admission for broad spectrum Breast US without evidence for abscess or fluid collection General surgery consulted for consideration of biopsy --> felt could be done outpatient and rec'd follow up with Dr Ford in next week for further eval/follow-up and rec'd discharge on PO Augmentin Ordered daily markings of erythema -- slight improvement today ?Consideration for topical mupirocin as well Blood cultures pending -- NGTD after 24 hours Per surgery, can d/c but will wait for blood cx ngtd 48 hours and continued improvement of erythema Also of note, had need biopsy core L breast for indeterminate group microcalcifications in upper-outer quadrant L breast 2018. Pathology with FAT NECROSIS WITH ASSOCIATED DYSTROPHIC CALCIFICATIONS AND BENIGN MAMMARY TISSUE Of note, recent mass noted to posterior R knee ---MRI at that time with Sharply defined, encapsulated, heterogeneous fibrocystic mass within the lateral head of gastrocnemius muscle posteriorly as described. Major differential diagnosis is that of a fibroma. --biopsy of mass to R posterior knee by ortho oncology. [place] benign. Would highly recommend close f/u given these do appear to be concerning findings in patient w/ hx breast ca (2) Hypothyroidism: Plan: TSH WNL in May 2021 at 2.52 Continue levothyroxine 112 mcg PO daily also with prior +MAXIMILIANO and anti-microsomal antibody positive and follows with rheum, treated with prednisone with improvement for arthralgias. HLA B27 negative Speckled pattern is associated with mixed connective tissue disease (MCTD), systemic lupus erythematosis (SLE), Sjogren' s syndrome, dermatomyositis, and systemic sclerosis/polymyositis overlap. f/u pcp outpt (3) History of breast cancer: Plan: Invasive ductal carcinoma s/p right lumpectomy + chemo, radiation on Vit D supplementation (4) Hypercholesterolemia: Plan: had been on statin, but per most recent rheumatology note, this was discontinued due to arthralgias (most recent lipid panel Mar 2021, TG 153, cholesterol 170, LDL 98, HDL 41) (5) Family history of breast cancer: Plan: BRCA negative personal and family history. family hx ovarian ca. patient is s/p prophylactic MARCO/BSO, final pathology was benign also with chronic migraines but per most recent heme/onc note, has had MRI of brain which did nt show any metastatic disease involving the brain on tamoxifen, taking 1/2 tablet daily in light of new superficial DVT recently but in post-menopausal patient suggest f/u Dr Fontenot and switching to Anastrazole. She will be almost 7-8 years this year and rec'd she be on this for total 10 years (6) Schatzki's ring: Plan: hx reflux, seen by Dr Churchill in Mar 2016 for dysphagia and had EGD revealing Schatzki ring, dilated. Also had espophagitis at that time proven by biopsy and few polyp removed, negative for malignancy at that time continue daily protonix (7) Insomnia: Plan: Continue Ambien 10mg PO HS PRN Plan: VTE Prophylaxis - recent superficial thrombus and will place on Lovenox SQ not ordered on admission Continue to monitor overnight -- if continued improvement in erythema/pain can d/c on PO abx and have close f/u with Dr Roslyn Ford and PCP Admission and Anticipated Discharge Date Admission Date: September 24, 2021 Subjective patient evaluated this morning doing well erythema not worsened, slightly improved same side as previous breast ca has lump to lateral aspect R breast which she notes was site of prior abscess requiring drainage at [facility]. has been on tamoxifen but recently due to superficial DVT dr fontenot told her to stop this temporarily. She has been taking 1/2 tablet for fear of recurrence given strong family history and last dose was yesterday morning she has had a prophylactic MARCO and inquired about not on anastazole. She notes Dr Fontenot wanted her to start something new that started with an A, and discussed likely arimidex and same as anastrazole as recommended for post-menopausal women. she notes she has been faithful about yearly mammograms and has upcoming in January Notes follow up to be arranged with Dr Ford at [facility] were her prior surgeron would come up to visit but recently has been following with Jayda Livingston. Prior biopsy of L breast benign as discussed. She states this started as blister and had been covering it and using triple antibioitc ointment . Discussed continued inpatient stay on IV antibiotics and possible further imaging (however breast US reviewed and without abscess). Also recent biopsy for posterior R knee mass. Had been having pain/nerve pain and since removal no further issues. She notes the mass was attached to a previous nerve. No fever/chills, chest pain, shortness of breath, unexplained weight loss, night sweats, or alternating bowel habits. No dysphagia (hx schzatski's rings s/p dilation with Dr Churchill in the past). Questions/concerns addressed at this time. Review of Systems Review of Systems: All systems reviewed & are unremarkable except as noted in HPI & below Physical Exam Constitutional: WD/WN, vitals as above Eyes: + anicteric sclerae; normal pupil size Respiratory: normal respiratory effort, lungs clear to auscultation Cardiovascular: RRR, no murmur, no edema Chest (Breasts): Breast: + skin thickening (erythema from 2-7'o'clock with central ulcer) and + breast tenderness (right); no axillary mass Additional Comments: also with R lateral 3x4cm size mass reportedly chroinc from site of prior abscess. incision from lumpectomy noted Gastrointestinal (Abdomen): Inspection/Auscultation: normal bowel sounds Percussion/Palpation: abdomen soft; abdomen nontender, no guarding and abdomen not rigid Musculoskeletal: no cyanosis or clubbing, extremities motor strength 5/5 Neurologic: moves all extremities and awake; not confused Psychiatric: A+Ox3, euthymic affect Results & Data Results & Data ([facility]) Vital Signs (Past 12 Hours) Vital Signs Temp Pulse Resp BP Pulse Ox 09/25/21 07:50 36.6 C 77 16 114/74 98 09/24/21 22:28 36.6 C 78 16 126/82 96 Laboratory Results 09/25/21 09/25/21 09/24/21 Range/Units 05:30 05:30 15:15 WBC 8.27 (4.8-10.8) K/uL RBC 4.02 L (4.2-5.4) M/uL Hgb 12.0 (12.0-16.0) g/dL Hct 38.0 (37-47) % MCV 94.5 (80-100) fL MCH 29.9 (25-34) pg MCHC 31.6 L (32-36) g/dL RDW Std Deviation 48.2 H (36.4-46.3) fL RDW Coeff of [place]und 13.9 (11.5-14.5) % Plt Count 254 (130-400) K/uL MPV 10.0 (7.4-10.4) fL Immature Gran % (Auto) 0.4 % Neut % (Auto) 50.0 % Lymph % (Auto) 41.1 % [place] % (Auto) 6.5 % Eos % (Auto) 1.9 % Baso % (Auto) 0.1 % Neut # (Auto) 4.13 (1.4-6.5) K/uL Lymph # (Auto) 3.40 (1.2-3.4) K/uL [place] # (Auto) 0.54 (0.11-0.59) K/uL Eos # (Auto) 0.16 (0-0.5) K/uL Baso # (Auto) 0.01 (0-0.2) K/uL Immature Gran # (Auto) 0.03 H (0.00-0.02) K/uL Sodium 140 (136-145) mmol/L Potassium 4.1 (3.5-5.1) mmol/L Chloride 108 H (98-107) mmol/L Carbon Dioxide 27 (21-32) mmol/L Anion Gap 5 (3-11) BUN 12 (6-23) mg/dl Creatinine 0.78 (0.6-1.2) mg/dl Est Cr Clr Drug Dosing 95.5 ml/min Est GFR ( Amer) 99.9 ml/min Est GFR (Non-Af Amer) 86.2 ml/min BUN/Creatinine Ratio 15.4 (10-20) Glucose 83 (70-99(Fasting)) mg/dl Calcium 8.4 L (8.5-10.1) mg/dl Total Bilirubin (0.2-1.0) mg/dl AST (13-39) U/L ALT (7-52) U/L Alkaline Phosphatase (34-104) U/L Total Protein (6.0-8.3) gm/dl Albumin (3.4-5.0) gm/dl Globulin (2.5-4.0) gm/dl Albumin/Globulin Ratio (0.9-2) SARS-CoV-2, RNA, NAAT NEGATIVE (NEGATIVE) 09/24/21 09/24/21 Range/Units 14:00 14:00 WBC 10.18 (4.8-10.8) K/uL RBC 4.43 (4.2-5.4) M/uL Hgb 13.8 (12.0-16.0) g/dL Hct 41.4 (37-47) % MCV 93.5 (80-100) fL MCH 31.2 (25-34) pg MCHC 33.3 (32-36) g/dL RDW Std Deviation 47.3 H (36.4-46.3) fL RDW Coeff of [place] 13.8 (11.5-14.5) % Plt Count 296 (130-400) K/uL MPV 10.1 (7.4-10.4) fL Immature Gran % (Auto) 0.3 % Neut % (Auto) 56.6 % Lymph % (Auto) 33.3 % [place] % (Auto) 8.7 % Eos % (Auto) 1.0 % Baso % (Auto) 0.1 % Neut # (Auto) 5.76 (1.4-6.5) K/uL Lymph # (Auto) 3.39 (1.2-3.4) K/uL [place] # (Auto) 0.89 H (0.11-0.59) K/uL Eos # (Auto) 0.10 (0-0.5) K/uL Baso # (Auto) 0.01 (0-0.2) K/uL Immature Gran # (Auto) 0.03 H (0.00-0.02) K/uL Sodium 139 (136-145) mmol/L Potassium 4.0 (3.5-5.1) mmol/L Chloride 103 (98-107) mmol/L Carbon Dioxide 27 (21-32) mmol/L Anion Gap 9 (3-11) BUN 12 (6-23) mg/dl Creatinine 0.81 (0.6-1.2) mg/dl Est Cr Clr Drug Dosing 91.0 ml/min Est GFR ( Amer) 95.4 ml/min Est GFR (Non-Af Amer) 82.3 ml/min BUN/Creatinine Ratio 14.8 (10-20) Glucose 84 (70-99(Fasting)) mg/dl Calcium 9.6 (8.5-10.1) mg/dl Total Bilirubin 0.5 (0.2-1.0) mg/dl AST 37 (13-39) U/L ALT 31 (7-52) U/L Alkaline Phosphatase 91 (34-104) U/L Total Protein 7.4 (6.0-8.3) gm/dl Albumin 4.3 (3.4-5.0) gm/dl Globulin 3.1 (2.5-4.0) gm/dl Albumin/Globulin Ratio 1.4 (0.9-2) SARS-CoV-2, RNA, NAAT (NEGATIVE) Diagnostic Findings Breast Ultrasound 09/24/21 13:18 US breast RT limited CLINICAL HISTORY: right breast wound COMPARISON STUDY: None. FINDINGS: Real-time sonographic imaging of the right medial breast was performed with national sales representative images submitted. No fluid collections to suggest an abscess. No mass identified on limited imaging. IMPRESSION: No fluid collections within the right breast to suggest an abscess. ACT 112: Negative or not required by law. Electronically signed by: Yao Bonilla M.D. 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
[2021-09-25] MEDS ORDERED: ENOXAPARIN INJ 60 MG/0.6 ML SYR SQ ONE (08:39)
[2021-09-25] MEDS: ZOLPIDEM TARTRATE 10 MG TAB PO PRN (23:30)
[2021-09-26] MEDS: VANCOMYCIN HCL 1,250 MG in SODIUM CHLORIDE 0.9% 250 ML IV SCH (04:01)
[2021-09-26] MEDS: AMPICILLIN/SULBACTAM SOD 3,000 MG in 0.9 % SODIUM CHLORIDE 100 ML IV SCH ×2 (05:32→11:50)
[2021-09-26] MEDS: LEVOTHYROXINE SODIUM 112 MCG TABLET PO SCH (06:11)
[2021-09-26 06:55] LABS: Creatinine Clr Calc Pharmacy 89.7 ml/min; Est GFR (African American) 92.7 ml/min; Est GFR (Non-African American) 79.9 ml/min
[2021-09-26] MEDS: CYANOCOBALAMIN (B-12) 500 MCG TABLET PO SCH (07:58)
[2021-09-26] MEDS: CHOLECALCIFEROL 5,000 UNITS 125 MCG TAB PO SCH (07:58)
[2021-09-26] MEDS: PANTOprazole 40 MG TAB PO SCH (07:59)
[2021-09-26] MEDS ORDERED: DOXYCYCLINE HYCLATE 100 MG CAP PO SCH (10:15)
--- NOTE | 2021-09-26 12:07 | Discharge Summary ---
Date of Service September 26, 2021 Admission HPI Per Admitting Provider Abril Estrada is a 56 year old female who presents to the ER with erythema on her right breast. Initially started as a blister on 09/17 for which she was seen in the ER. At that time she was started on Keflex and has been complaint with taking this. The erythema has progressed despite being on this. She denies any fever or chills. She has a history of invasive ductal carcinoma in this breast s/p lumpectomy, chemotherapy and radiation in 2012. She has been on tamoxifen since this time but recently discontinued due to superficial venous thrombosis in her leg. In the ER her presentation was concerning for failure of Keflex treatment for cellulitis therefore she was started on IV vancomycin and referred to medicine for admission and ongoing management of this. Principal Diagnosis Right Breast Cellulitis Discharge Exam PHYSICAL EXAM General Appearance: WDWN in NAD who is A&O x 3 HEENT: Head is normocephalic/atraumatic;Hearing grossly intact; Mucous membranes moist Neck: Supple; Trachea midline; Neg JVD Heart: RRR with no M/G/R Lungs: CTA in all lung kan bilaterally; Respirations unlabored; Neg accessory muscle use Abdomen: Soft, non-tender, non-distended; Positive BS x 4 quadrants Extremities: Neg cyanosis or edema Neurological: Speech clear; Gross motor/sensory function intact; Neg focal yun rologic deficits Psychiatric: Appropriate mood/affect Skin: Normal Color; Warm/Dry Breast: R breast with central closed ulceration with no drainage; no axillary mass; Minimal erythema of the breast mostly just around ulceration; non-tender; significant improvement from demarcated line Discharge Data Allergies Allergy/AdvReac Type Severity Reaction Status Date / Time hydromorphone [From Dilaudid] AdvReac Severe MAKES Verified 09/24/21 15:37 OXYGEN DROP PER PT adhesive AdvReac Intermediate TEGADERM Verified 09/24/21 15:37 TAPE-BLISTERS hydrocodone AdvReac Intermediate BODY Verified 09/24/21 15:37 TREMBLING Influenza Virus Vaccines AdvReac Intermediate Vomiting Verified 09/24/21 15:37 oxycodone AdvReac Mild VOMITING Verified 09/24/21 15:37 Tegaderm Film 1-3/4"x1-3/4" AdvReac Intermediate SKIN Uncoded 09/24/21 15:37 SC BLISTERED Flu Virus Vaccine AdvReac Mild VOMITING Uncoded 09/24/21 15:37 Consultations 09/24/21 15:28 ED Decision to Admit Stat 09/24/21 16:07 Consult General Surgery Routine Ordered Studies Breast Ultrasound 09/24/21 13:18 US breast RT limited CLINICAL HISTORY: right breast wound COMPARISON STUDY: None. FINDINGS: Real-time sonographic imaging of the right medial breast was performed with customer contact representative images submitted. No fluid collections to suggest an abscess. No mass identified on limited imaging. IMPRESSION: No fluid collections within the right breast to suggest an abscess. ACT 112: Negative or not required by law. Electronically signed by: Yao Bonilla M.D. 09/24/2021 3:12 PM Hospital Course (1) Cellulitis of right breast: - Difficult to exclude underlying breast lesion which is certainly concerning given her history and cellulitis in SAME breast as prior invasive ductal ca s/p lumpectomy/chemo/xrt on Tamoxifen but recently stopped d/t superficial venous thrombus - Seen in ER 09/17, cx obtained (no wbc/organisms, no growth on final) and sent on PO Keflex with increasing erythema - Recent +flu 08/09/21 Placed on Vanco/Unasyn on admission for broad spectrum with good clinical response. Since she was treated with MRSA coverage did D/C with Augmentin BID and Doxycycline BID to complete and additional 9 days coverage. Breast US without evidence for abscess or fluid collection General surgery consulted for consideration of biopsy --> felt could be done outpatient and rec'd follow up with Dr Ford in next week for further eval/follow-up and rec'd discharge on PO Augmentin Blood cultures NGTD Also of note, had need biopsy core L breast for indeterminate group microcalcifications in upper-outer quadrant L breast 2017. Pathology with FAT NECROSIS WITH ASSOCIATED DYSTROPHIC CALCIFICATIONS AND BENIGN MAMMARY TISSUE Of note, recent mass noted to posterior R knee --MRI at that time with Sharply defined, encapsulated, heterogeneous fibrocystic mass within the lateral head of gastrocnemius muscle posteriorly as described. Major differential diagnosis is that of a fibroma. --biopsy of mass to R posterior knee by ortho oncology. Villard benign. --Would highly recommend close f/u given these do appear to be concerning findings in patient w/ hx breast ca (2) Hypothyroidism: TSH WNL in May 2021 at 2.52 Continue levothyroxine 112 mcg PO daily also with prior +MAXIMILIANO and anti-microsomal antibody positive and follows with rheum, treated with prednisone with improvement for arthralgias. HLA B27 negative Speckled pattern is associated with mixed connective tissue disease (MCTD), systemic lupus erythematosis (SLE), Sjogren' s syndrome, dermatomyositis, and systemic sclerosis/polymyositis overlap. (3) History of breast cancer: Invasive ductal carcinoma s/p right lumpectomy + chemo, radiation on Vit D supplementation (4) Hypercholesterolemia: had been on statin, but per most recent rheumatology note, this was discontinued due to arthralgias (most recent lipid panel Mar 2021, TG 153, cholesterol 170, LDL 98, HDL 41) (5) Family history of breast cancer: BRCA negative personal and family history. family hx ovarian ca. patient is s/p prophylactic MARCO/BSO, final pathology was benign also with chronic migraines but per most recent heme/onc note, has had MRI of brain which did nt show any metastatic disease involving the brain on tamoxifen, taking 1/2 tablet daily in light of new superficial DVT recently but in post-menopausal patient suggest f/u Dr Hatfield and switching to Anastrazole. She will be almost 7-8 years this year and rec'd she be on this for total 10 years however was actually told to stop Tamoxifen altogether she reports but she was nervous given her history and was taking the 1/2 tablet. (6) Schatzki's ring: hx reflux, seen by Dr Churchill in Mar 2016 for dysphagia and had EGD revealing Schatzki ring, dilated. Also had espophagitis at that time proven by biopsy and few polyp removed, negative for malignancy at that time continue daily protonix (7) Insomnia: Continue Ambien 10mg PO HS PRN VTE Prophylaxis - recent superficial thrombus and will place on Lovenox SQ DC home with F/U with Gen Surg and PCP Total Time Total Time Spent Total Time Spent (In Minutes): Spent greater than 30 minutes preparing patient for discharge. This includes discussion with patient/family, assessment, intervention, medication reconciliation, and coordination of care. Discharge Plan Discharge Items Patient Disposition: Home - Self-Care Reason For Visit: RIGHT BREAST CELLULITIS / LESION Discharge Diagnosis: Right Breast Cellulitis (Skin Infection) Condition on Discharge: Good Activity: Resume your previous activity Non-emergency contact: Primary Care Provider Call non-emergency contact if: you have any medication questions, your symptoms worsen and you have a fever Follow-up/Referrals: Flip Rogers III, CRNP [Primary Care Provider] - 09/29/21 3:40 pm Roslyn Ford MD [Physician] - (Call office to arrange outpatient appointment in coming days) Diet: Regular Addtl Attending Provider Instructions: Cellulitis of Right Breast (Skin Infection): - Given your history of breast cancer in that breast. It is recommended that you follow-up with the [facility] to possibly do a biopsy with Dr. Ford. Their office number is [phone] and recommend calling and confirming an appointment with them. - The ultrasound performed here of the breast did not show any abscess or pocket of infection. - You were treated with IV antibiotics and will finish a course of oral medications. -- You will take Augmentin one tablet this evening. On 09/27 you will then start taking this twice a day until complete -- You will take Doxycycline one tablet this evening. On 09/27 you will then start taking this twice a day until complete as well - Thankfully your blood cultures also did not grow any bacteria - If you start feeling worse, increased pain, fevers, increased redness you will need to see your doctor or come to the ER. These antibiotics should do the trick but sometimes they can fail. - You may shower but do not scrub this area. Recommend mild soap to avoid irritation. Do not soak in a bath tub or hot tub until this heals - You may use Tylenol as needed for mild discomfort MRI of Knee from June: - Recommend to follow-up with your family doctor for monitoring of this fibrocystic mass that was seen in the muscle Home Medications: - Continue home medications as previously prescribed. We did not make adjustments to these Pending Studies at Discharge: No Stand-Alone Forms: My ESCAPESwithYOU, Smoking Cessation Medications and DC Order Prescriptions: New doxycycline hyclate 100 mg Capsule 100 mg PO BID Qty: 19 RF: 0 amoxicillin-pot clavulanate 875-125 mg tablet 1 tab PO BID Qty: 19 RF: 0 Continued levothyroxine 112 mcg tablet 112 mcg PO DAILY Qty: 90 RF: 1 albuterol sulfate [Ventolin HFA] 90 mcg/actuation HFA aerosol inhaler See Rx Instructions inhalation .COMPLEX PRN (Reason: shortness of breath or wheezing) Qty: 8.5 RF: 0 zolpidem 10 mg tablet 10 mg PO HS PRN (Reason: sleep) Qty: 30 RF: 2 naproxen 500 mg tablet 500 mg PO BID Qty: 180 RF: 3 cyanocobalamin (vitamin B-12) [Vitamin B-12] 1,000 mcg Tablet 1,000 mcg PO QAM RF: 0 cholecalciferol (vitamin D3) 125 mcg (5,000 unit) capsule 5,000 unit PO DAILY RF: 0 pantoprazole 40 mg tablet,delayed release (DR/EC) 40 mg PO DAILY RF: 0 Discontinued tamoxifen 20 mg tablet 20 mg PO QAM RF: 0 Discharge Orders: Discharge Order (Routine); Ordered 09/26/21 Ordered By: Makeda Edmonds Admission Data Admit Date/Time: 09/24/21 16:29 Attending Provider: Leon Jimenez Admit Provider: Nathanael Ashford Primary Care Provider: Flip oRgers III Other Providers: Fernando Restrepo ; Nathanael Ashford Other Interventions: Discharge Summary Assessment (RN) Last Done: 09/26/21 16:04 Supervising Physician Co-Signing Physician Notes During face to face encounter, obtained summary of hospital stay, subjective findings, ane performed a physical examination. I discussed case and discharge planning with LICHA Edmonds, and patient. I reviewed above note and agree with it. Patient will be discharge with cellulitis of the right breast. Will be on antibiotics as stated in the instructions. will follow with surgery if any further imaging is required to ensure no repeat cancer. 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
[2021-09-26] MEDS ORDERED: VANCOMYCIN TROUGH ONE (14:30)
== END 2021-09-26 16:25 | disposition home or self-care (01) ==
LOC: 3E 12:59 → ED 12:59 → SUATTDRO 16:29 → 3E 18:21

== ENCOUNTER 2024-02-29 05:03 | Observation (INO) ==
--- NOTE | 2024-01-29 13:59 | PAT Medication Instructions ---
Medication Instructions Date of Service January 29, 2024 Home Medications Medication Instructions Recorded zolpidem 10 mg tablet 10 mg PO HS PRN sleep #30 tabs 10/26/23 omega-3 acid ethyl esters 1 gram 1 cap PO BID #180 caps 10/30/23 capsule Medication List: zolpidem 10 mg tablet 10 mg PO HS PRN sleep omega-3 acid ethyl esters 1 gram capsule 1 cap PO BID cholecalciferol (vitamin D3) 125 mcg (5,000 unit) capsule 5,000 unit PO QAM cyanocobalamin (vitamin B-12) 500 mcg tablet (Vitamin B-12) 500 mcg PO QAM levothyroxine 100 mcg tablet 100 mcg PO QAM pantoprazole 40 mg tablet,delayed release 40 mg PO QAM MEDICATION INSTRUCTIONS: STOP taking 2 weeks before surgery omega-3 acid ethyl esters 1 gram capsule 1 cap PO BID DO NOT take the morning of surgery cholecalciferol (vitamin D3) 125 mcg (5,000 unit) capsule 5,000 unit PO QAM cyanocobalamin (vitamin B-12) 500 mcg tablet (Vitamin B-12) 500 mcg PO QAM Take morning of surgery With a small sip of water, OTHERWISE NOTHING TO EAT OR DRINK AFTER MIDNIGHT: levothyroxine 100 mcg tablet 100 mcg PO QAM pantoprazole 40 mg tablet,delayed release 40 mg PO QAM Take evening before surgery zolpidem 10 mg tablet 10 mg PO HS PRN sleep Other Notes If you have any questions please call us at [phone] or [phone] or [phone] or [phone]
--- NOTE | 2024-02-04 09:41 | Anesthesiology Consultation ---
Date of Service February 04, 2024 Assessment & Plan (1) Encounter for pre-operative examination: Plan - Fentanyl: patient requests "small" dose of fentanyl due to concern for hypoxia with hydromorphone. - right arm restriction. - Outpatient joint assessment: Patient is currently scheduled for inpatient pathway. If re-evaluated and patient/surgeon requests outpatient pathway, patient is not ideal candidate for outpatient joint program from anesthesia standpoint. Chart Review Chart Review: Acceptable Risk for Surgery and Patient seen in Pre Admission Testing Teaching & Discussion Pre-Anesthesia Teaching/Discussion Notes: Instructed NPO after midnight before surgery, except medications with 15 cc of water. Medication instructions provided according to the PAT guidelines. History Surgery Operation Date: 02/29/24 07:00 Proposed Procedures p Left Total Hip Arthroplasty - Tamir Posey MD Height/Weight Height: 5 ft 6 in Weight: 84.3 kg Allergies Allergy/AdvReac Type Severity Reaction Status Date / Time atorvastatin AdvReac Severe Joint Pain Verified 02/01/24 12:44 fenofibrate AdvReac Severe myalgia Verified 02/01/24 12:44 and headache hydromorphone [From Dilaudid] AdvReac Severe MAKES Verified 02/01/24 12:44 OXYGEN DROP PER PT adhesive AdvReac Intermediate TEGADERM Verified 02/01/24 12:44 TAPE-BLISTERS hydrocodone AdvReac Intermediate BODY Verified 02/01/24 12:44 TREMBLING Influenza Virus Vaccines AdvReac Intermediate Vomiting Verified 02/01/24 12:44 oxycodone AdvReac Mild VOMITING Verified 02/01/24 12:44 rosuvastatin AdvReac body Verified 02/01/24 12:44 aches, joint pain Tegaderm Film 1-3/4"x1-3/4" AdvReac Intermediate SKIN Uncoded 02/01/24 12:44 MA BLISTERED Medications Home Medications Medication Instructions Recorded Confirmed Last Taken omega-3 acid ethyl esters 1 gram 1 cap PO BID #180 caps 10/30/23 02/01/24 Unknown capsule cholecalciferol (vitamin D3) 125 5,000 unit PO QAM 01/21/24 02/01/24 Unknown mcg (5,000 unit) capsule cyanocobalamin (vitamin B-12) 500 500 mcg PO QAM 01/21/24 02/01/24 Unknown mcg tablet (Vitamin B-12) levothyroxine 100 mcg tablet 100 mcg PO QAM 01/21/24 02/01/24 Unknown pantoprazole 40 mg tablet,delayed 40 mg PO QAM 01/21/24 02/01/24 Unknown release zolpidem 10 mg tablet 10 mg PO HS PRN sleep #30 tabs 01/30/24 02/01/24 Unknown Past Medical History Medical History (Updated 02/04/24 @ 09:37 by Hetal Hobson PA-C) Arthralgia receives toradol injections every 2 weeks, next injection is 01/25/24 at PCP, into left hip Breast cancer (03/17/13) s/p Rt lumpectomy + chemo, radiation Chronic reflux esophagitis History of migraine Hx of blood clots thrombosis, behind right knee, 07/2021, surgically removed at [facility]; "Never had to be on blood thinners" Hyperlipidemia only taking fish oil, unable to take other cholesterol meds Hypothyroidism Limb alert care status right arm Osteopenia PMR (polymyalgia rheumatica) Schatzki's ring Trochanteric bursitis, left hip Patient denies h/o stroke, seizures, heart attack, heart failure, DM, HTN, or blood transfusions. Exercise / Class Metabolic Activity II 4-5 Yardwork/Stairs/Walk up hill (denies chest discomfort or shortness of breath with one flight of stairs) Past Family History Family History Grandmother Breast cancer Aunt Ovarian cancer Breast cancer Diabetes Mother Diabetes Hypertension Myocardial infarction Brother Hypertension Uncle Diabetes Father History of open heart surgery Other No family history of adverse response to anesthesia Denies family history of Prostate cancer Colorectal cancer Past Surgical History Surgical History (Updated 02/04/24 @ 09:37 by Hetal Hobson PA-C) History of ankle surgery Left History of breast biopsy History of colonoscopy History of dilation and curettage History of esophageal dilatation last procedure 5 yrs ago History of esophagogastroduodenoscopy (EGD) History of lumpectomy of right breast History of repair of rectocele History of surgery on lower extremity thrombosis removed from behind right knee, 07/2021, [facility] cardio History of surgery on wrist Right History of total abdominal hysterectomy History of tubal ligation History of vascular access device removed Past Anesthesia History No Hx of Anesthesia Complications and No Family Hx of Anesthesia Complications History of PONV History of PONV and Hx of Motion Sickness Social History Smoking Status: Never smoker Do You Dip or Chew Tobacco: No Hx Alcohol Use: No Hx Substance Use: No substance use type: does not use Review of Systems Patient went to [facility] care 02/01/24 due to right ear drainage and pain-states was told she had fluid behind TM. She states this is improving. Patient denies chest pain, shortness of breath, dyspnea on exertion, snoring, witnessed apneas, fever, chills, cough, wheezing, or palpitations. Physical Exam Vital Signs Vitals BP 139/89 P 74 TEMP 98.5 SP02 97% on RA RESP 18 Physical Patient resting comfortably in chair in no acute distress, alert and oriented, responding appropriately throughout visit Full cervical extension range of motion without pain TMD 3.5 finger breadths Mallampati Score 2 Dentition: several broken teeth; denies loose teeth, caps/crowns, implants or bridges Lungs: normal respiratory effort. Good air movement, clear throughout to auscultation, no adventitious breath sounds Cardiac: regular rate and rhythm, no murmurs noted Carotid arteries: negative bruit bilat Lab Results Anesthesia Preop Results Results Anesthesia Widget: WBC 6.86 K/ul (4.8-10.8) 02/04/24 Hgb 14.8 g/dl (12.0-16.0) 02/04/24 Hct 45.3 % (37.0-47.0) 02/04/24 Plt 346 K/uL (130-400) 02/04/24 Na 140 mmol/L (136-145) 02/04/24 K 4.2 mmol/L (3.5-5.1) 02/04/24 Cl 103 mmol/L (98-107) 02/04/24 CO2 30 mmol/L (21-32) 02/04/24 BUN 8 mg/dl (6-23) 02/04/24 Creat 0.82 mg/dl (0.6-1.2) 02/04/24 Glucose Level 91 mg/dl (70-99(Fasting)) 02/04/24 PT 11.8 Seconds (9.0-12.0) 02/04/24 PTT 26 Seconds (21-31) 02/04/24 INR 1.1 (0.9-1.1) 02/04/24 SARS-CoV-2, RNA, NAAT Negative 02/01/24 Blood Type O Positive 02/04/24 Antibody Screen NEGATIVE 02/04/24 Testing Electrocardiogram Date: 02/04/24 NSR, rate [address] abnormality Chest X-Ray Date: 02/04/24 No active disease in the chest.
[2024-02-29] MEDS: LR 500ML BOLUS, THEN 15ML/HR IV SCH (05:58)
[2024-02-29] MEDS: dexAMETHasone**PF** 10 MG/ML VIAL IV SCH (05:58)
[2024-02-29] MEDS: METOCLOPRAMIDE HCL 10 MG TABLET PO SCH (05:59)
[2024-02-29] MEDS: Scopolamine 1 MG TDSY TD SCH (05:59)
[2024-02-29] MEDS: CeleBREX 200 MG CAP PO SCH (06:00)
[2024-02-29] MEDS: ACETAMINOPHEN 500 MG TAB PO SCH ×2 (06:00→14:48)
[2024-02-29] MEDS: FAMOTIDINE 20 MG TAB PO SCH (06:00)
[2024-02-29] MEDS ORDERED: ROPIVACAINE 0.5% 5 MG/ML 30 ML VIAL ONE (06:17)
--- OUTSIDE RECORDS SUMMARY | 2024-02-29 06:18 | External Medical Summary | Summary of Care ---
Author Name Unknown Organization [facility] Address [address] [facility] [place] [address] Phone [phone] Care Team Providers Care Special Education Administrator Name Role Phone Karen Thomas MD Primary Care Provider Reason for Visit * Reason Comments Follow Up Yearly check up Hx b reast cancer. Encounter Details Date Type Department Care Team (Late st Contact Info) Description 02/28/2024 11:00 AM EDT Office Visit General Surgery, [facility] [address] [place] [address] Tori Livingston PA-C [address] [place] [address] History of breast cancer*; Breast cancer screening, high risk patient Allergies Active Allergy Reactions Criticality Noted Date Comments Hydromorphone Anaphylaxis High 04/21/2021 O2 dropped into 80's Influenza Virus Vaccine Nausea/vomiting Low 013 Oxycodone-Acetaminophen Nausea/vomiting Low 013 Chlorhexidine Gluconate Low 01/22/2013 Adhesive causes blistering Hydrocodone-Acetaminophen Chills/rigors Low 013 documented as of this encounter (statuses as of 02/28/2024) Medications Medication Sig Dispensed Refills Start Date End Date Status VITAMIN B-12 500 MCG SL SUBL 2 tablets daily Active zolpidem (AMBIEN) 10 MG Tablet As needed 03/12/2015 Active pantoprazole (PROTONIX) 40 MG TBEC Take 1 Tablet by mouth in the morning. 04/20/2016 Active polyethylene glycol 3350 (MIRALAX) 255 gram powder Take 17 g by mouth daily as needed. 08/10/2016 Active D3 Maximum Strength 125 MCG (5000 UT) Oral Capsule TAKE 1 CAPSULE BY MOUTH IN THE MORNING 01/31/2021 Active Ssspb-6-[id number] Ethyl Esters 1 GM Oral Capsule Take 1 Capsule by mouth in the morning and 1 Capsule before bedtime. 12/05/2021 Active Ezetimibe 10 MG Oral Tablet (Zetia) 1 Tablet. 10/10/2022 Active Levothyroxine Sodium 100 MCG Oral Tablet (Levoxyl) Take 1 Tablet by mouth in the morning. 01/03/2023 Active documented as of this encounter (statuses as of 02/28/2024) Active Problems Problem Noted Date Diagnosed Date History of breast cancer 05/02/2018 Post-operative pain 05/02/2018 ADVANCE DIRECTIVE INFORMATION 01/18/2018 Overview: Pt does not have a living will or power or divorce attorney. Gave information to pt. Breast abscess 01/31/2014 Family history of ovarian cancer 06/18/2013 Other specified prophylactic or treatment measur e 04/01/2013 Encounter for antineoplastic chemotherapy 2012 Invasive ductal carcinoma of breast 12/10/2012 Cancer Staging:Clinical: Unsigned Pathologic:Stage IIB(T2, N1a, cM0) - Signed by Tyshawn Hatfield MD on 06/25/2013 documented as of this encounter (statuses as of 02/28/2024) Resolved Problems Problem Noted Date Diagnosed Date Resolved Date Rectocele 02/09/2017 10/23/2017 Invasive ductal carcinoma of breast 03/07/2013 04/22/2013 Encounter for examination fo r normal comparison and control in clinical research program 02/28/2013 08/06/2013 Overview: Trial participant as of: 02/28/13 Project #: [email or web address] B49: A Phase III Clinica Trial Comparing the Combination of Docetaxel plus Cyclophosphamide to Anthracycline-Based Chemotherapy Regimens for Women with Node-Positive or High-Risk Node-Negative, HER2-Negative Breast Cancer. PI Name: Tyshawn Hatfield MD PI CRC Name: Leesa Lopez [facility] Contact PI or SERVICE ORDER TAKER regarding any serious medical event, ER visit, hospitalization, if new Rx given, or billing question Diagnosis changed due to Research Module. Go to Snapshot for study details. Encounter for examination fo r normal comparison and control in clinical research program 02/28/2013 02/17/2014 Overview: RESEARCH HEM/ONC FOLLOW UP CARE Renamed per the Centers for Medicare and Medicaid billing requirements to include Clinical Trial.gov number. Trial participant as of: 02/28/13 Project #: NSABP B49: A Phase III Clinica Trial Comparing the Combination of Docetaxel plus Cyclophosphamide to Anthracycline-Based Chemotherapy Regimens for Women with Node-Positive or High-Risk Node-Negative, HER2-Negative Breast Cancer. PI Name: Tyshawn Hatfield MD PI CRC Name: Leesa Lopez [facility] Contact PI or SERVICE ORDER TAKER regarding any serious medical event, ER visit, hospitalization, if new Rx given, or billing question Diagnosis changed due to Research Module. Go to Snapshot for study details. Encounter for examination fo r normal comparison and control in clinical research program 02/28/2013 06/08/2016 Overview: Diagnosis description adjusted per Research Compliance Office. RESEARCH HEM/ONC FOLLOW UP CARE Renamed per the Centers for Medicare and Medicaid billing requirements to include Clinical Trial.gov number. Trial participant as of: 02/28/13 Project #: NSABP B49: A Phase III Clinica Trial Comparing the Combination of Docetaxel plus Cyclophosphamide to Anthracycline-Based Chemotherapy Regimens for Women with Node-Positive or High-Risk Node-Negative, HER2-Negative Breast Cancer. PI Name: Tyshawn Hatfield MD PI CRC Name: Leesa Lopez [facility] Contact PI or SERVICE ORDER TAKER regarding any serious medical event, ER visit, hospitalization, if new Rx given, or billing question Diagnosis changed due to Research Module. Go to Snapshot for study details. documented as of this encounter (statuses as of 02/28/2024) Immunizations Name Administration Dates Next Due COVID-19 mRNA, LNP-s, No Pre serve, 2-Dose Series (Youtopia) 2021,04/19/2021 documented as of this encounter Social History Tobacco Use Types Packs/Day Years Used Date Smoking Tobacco: Never Smokeless Tobacco: Never Alcohol Use Standard Drinks/Week Comments No 0 (1 standard drink = 0.6 oz pur e alcohol) Utilities Answer Date Recorded Do you have trouble paying y our heating, water, or electric bill? (Adult - for ages 18 years and over) Not on file 01/15/2024 Is your family able to pay t he heat, water, or electric bill? (Household - for ages 0-17 years) Not on file 01/15/2024 Does your family have access to good internet? (Household - for ages 0-17 years) Not on file 01/15/2024 Social Connections Answer Date Recorded How often do you feel lonely or isolated from those around you? (Adult - for ages 18 years and over) Not on file 01/15/2024 Sex and Gender Information Value Date Recorded Sex Assigned at Not on file Gender Identity Not on file Sexual Orientation Not on file Job Start Date Occupation Industry Not on file Not on file Not on file documented as of this encounter Last Filed Vital Signs Vital Sign Reading Time Taken Comments Blood Pressure 145/70 02/28/2024 10:25 AM EDT Pulse 84 02/28/2024 10:25 AM EDT Temperature - - Respiratory Rate - - Oxygen Saturation - - Inhaled Oxygen Concentration - - Weight 85.5 kg (188 lb 9.6 oz) 02/28/2024 10:25 AM EDT Height - - Body Mass Index 30.44 09/28/2023 12:58 PM EST documented in this encounter Functional Status Functional Status Response Date of Assess ment Are you deaf or do you have serious difficulty h earing? No 02/01/2014 Are you blind or do you have serious difficulty seeing, even when wearing glasses? No 02/01/2014 Do you have serious difficul ty walking or climbing stairs? (5 years old or older) No 02/01/2014 Do you have difficulty dress ing or bathing? (5 years old or older) No 02/01/2014 Because of a physical, menta l, or emotional condition, do you have difficulty doing errands alone such as visiting a doctor s office or shopping? (15 years old or older) No 02/02/20 14 Cognitive Status Response Date of Assessm ent Because of a physical, menta l, or emotional condition, do you have serious difficulty concentrating, remembering, or making decisions? (5 years old or older) No 02/01/2014 documented as of this encounter Progress Notes * Tori Livingston PA-C - 02/28/2024 10:36 AM EDT [facility] FOLLOW UP NOTE Chief Complaint Patient presents with Follow Up Yearly check up Hx breast cancer. REASON FOR VISIT: Follow up Right Breast Cancer Clinical Stage 2- T2N1M0; 11 yr f/u Last office visit: 03/20/2023 Abril Estrada is a 58 year old female with a history of right breast cancer, as per following: Date of treatment: 01/2013 Breast cancer treated: Grade 2 invasive no special type Carcinoma [place] nodes were positive (07/30) Primary tumor: estrogen receptor and progesterone receptor positive. HER-2/yun receptors negative; Tumor size 2.8 cm; Margins were positive, superior margin re-excision at same time of Lumpectomy negative Surgical procedure performed: Right simple masectomy and sentinel node biopsy Radiation history: Right breast radiation Chemotherapy history: Yes,she completed 6 cycles of chemotherapy with TAC (Taxotere, Adriamycin, cyclophosphamide) as a part of a clinical trial, last cycle of chemotherapy received on 06/24/2013.; received 8 yrs of tamoxifen (Dr. Hatfield is oncologist); stopped this year (2021) due to superficial thrombus in her leg Breast History: She underwent plastic surgery operation on 04/11/[address] Pelon De La Fuente of [facility]. Injection of fatty tissue in the RUQ breast She underwent supplemental breast MRI in July of 2020 in which she tolerated fine but stated herinsurance did not cover much and she does not want to pursue breast MRI for supplemental screening any further given the cost. She developed a blood clot in her leg in August 2021 and stopped taking the Tamoxifen. She had been on it for 8 years. Per pathology, patient had a thrombus in the lesser saphenous vein within subcutaneous tissues and not a DVT. Interim history: Denies of any fever, chills, night sweats, vision changes, headaches, joint or bone pain out of ordinary. Has bad arthritis in left hip, going for hip replacement tomorrow at [facility] Denies of any breast pain, nipple discharge or bleeding, breast changes, new lumps or bumps. Oncology note from 09/28/2023 Dr. Hatfield personally reviewed, 1 year f/u recommended, Tamoxifen stopped Aug 2021. Imaging: Bilateral screening mammogram 02/18/2024 Findings There are benign calcifications present. Right The right breast has scattered areas of fibroglandular density. There are post-surgical findings from a previous lumpectomy with radiation seen in the right breast. Compared to the previous studies, there are no significant changes. Stable oval circumscribed lucency with rim calcifications in the outer middle depth right breast at site plastic surgical injection of fat at [facility] 04/11/2018. There has been no interval development of a suspiciousmass, microcalcification, or architectural distortion. There is no evidence of suspicious masses, calcifications, or other abnormal findings in the right breast. Left The left breast has scattered areas of fibroglandular density. There is no evidence of suspicious masses, calcifications, or other abnormal findings in the left breast. Bilateral There are biopsy clips seen in both breasts. Compared to the previous study, there are no significant changes. There is no evidence of suspicious masses, calcifications, or other abnormal findings. Impression Bilateral No mammographic evidence of malignancy. BI-RADS Category: 2 - Benign. Recommendation Screening mammogram in 1 year is recommended for both breasts. Personally reviewed mammography images above and concur with above findings. Objective: BP 145/70 | Pulse 84 | Wt 85.5 kg (188 lb 9.6 oz) | LMP 04/10/2013 | BMI 30.44 kg/m | BSA 2 m PHYSICAL EXAMINATION: Constitutional: alert, healthy, well nourished Head: normocephalic, atraumatic Eyes: conjunctiva non-injected, sclera white Ears: pinna normal shape and color Neck: supple, no adenopathy Lungs: clear to auscultation, breath sounds are equal and symmetric Heart: regular rate & rhythm and no murmur, gallops or rubs Back: normal curvature, normal ROM Extremities: no joint deformities, effusion, or inflammation, no edema, no skin discoloration Neuro: alert, gait normal, motor normal Skin: no obvious rashes or significant lesions BREAST EXAMINATION: Right Breast: Right Breast: Masses noted: No Post XRT edema: No Post XRT erythema: No Other palpable abnormality: Lump at lumpectomy scar at site of fat injection in 2018, stable (7:00 rounded mass about 3 cm, soft) Skin: Skin retraction: NO Peau d'orange: No Telangectasia: No Scar(s) present: Yes, Lumpectomy scar, well healed at 7 o'clock Other changes: No Right Nipple: Nipple inversion: No Pagets: No Nipple discharge: No Right Lymph Nodes: Arm edema: No Palpable axillary adenopathy: No Palpable supraclavicular adenopathy: No Previous axillary incision: Yes, previous axillary incision scar present Left Breast: Left Breast: Masses noted: No Post XRT edema: No Post XRT erythema: No Other palpable abnormality: No Skin: Skin retraction: No Peau d'orange: No Telangectasia: No Scar(s) present: NO Other changes: No Left Nipple: Nipple inversion: No Pagets: No Nipple discharge: No Left Lymph Nodes: Arm edema: No Palpable axillary adenopathy: No Palpable supraclavicular adenopathy: No Previous axillary incision: No Impression/Plan: 11 years following right breast lumpectomy for invasive cancer s/p radiation and chemotherapy and took Tamoxifen for 8 years. Stopped in August 2021 due to superficial thrombus in the right leg. S/p plastic surgery of right breast (fat injection RUQ) in 2018. Bilateral mammogram BIRADS 2, physical examination negative , stable oil cyst at area of fat injection at incision site. She does not want to proceed with supplemental breast MRI for screening as her insurance did not cover much of the study and had to pay a lot out of pocket. Will continue yearly screening mammogram with tomosynthesis. In conclusion, our recommendation for patient is: Continue screening mammogram with Tomosynthesis yearly, due January 2025 order placed Continue self breast examination and contact office with any breast changes/concerns. She would prefer yearly follow-up in breast clinic Return to clinic in 1 year Tori Livingston PA-C 02/28/2024 11:23 AM documented in this encounter Nursing Notes * Mahad Swenson MED ASSIST - 02/28/2024 10:27 AM EDT Chief Complaint Patient presents with Follow Up Yearly check up Hx breast cancer. Verified patient. Patient is here alone today. documented in this encounter Plan of Treatment Upcoming Encounters Date Type Department Care Team (Late st Contact Info) Description 10/03/2024 1:15 PM EST Office Visit Hematology/Oncology [facility] [address] [place] [phone] Tyshawn Hatfield MD [address] [place] [address] 02/18/2025 11:45 AM EDT Imaging Radiology [facility] [address] [facility] [address] [facility] [place] [address] Scheduled Orders Name Type Priority Associated Diagnoses Orde r Schedule MAMMOGRAM SCREENING RUEL BILATERAL Medical Imaging Routine Breast cancer screening, high risk patient History of breast cancer Expected: 02/17/2025, Expires: 03/30/2025 Health Maintenance Due Date Last Done Comments HIV Screening 1982 Hepatitis C Screening 1985 TSH 1985 DTaP,Tdap,and Td Vaccines (1 - Tdap) 1986 Hepatitis B Vaccine (1 of 3 - 19+ 3-dose series) 1986 Cologuard 2012 Colonoscopy 2012 Colorectal Cancer Screening 2012 Fecal Occult Blood Test 2012 Sigmoidoscopy 2012 Zoster Vaccines (1 of 2) 2017 Depression Screening 01/30/2018 01/30/2017 Lipid Panel 08/04/2020 08/04/2015 COVID-19 Vaccine ( season) 2023 12/06/2021, 2021, 04/19/2021 Influenza Vaccine (FLU shot) (#1) 2024 Diabetes Screening 08/16/2024 08/16/2021, 0 08/01/2021, 02/06/2014, Additional history exists Mammogram 02/17/2025 02/18/2024, 01/28, 02/14/2022, Additional history exists HPV (Gardasil) Vaccine Aged Out No lo nger eligible based on patient's age to complete this topic MENINGOCOCCAL (MENACTRA/MENVEO) Aged Out No longer eligible based on patient's age to complete this topic Pneumococcal Vaccine: Pediatrics (0 to 5 Years) and At-Risk Patients (6 to 64 Years) Aged Out No longer eligible based on patient's age to complete this topic documented as of this encounter Medical Devices Implanted Type Area Pre Sales Technical Engineer Device Identifier Shelf Expiration Date Model / Serial / Lot Mediport Pwr Isp 8fr [id number] - [id number] Implanted:Qty: 1 on 02/20/2013 at OR [facility] Left: Chest CR BARD : PERIPHERAL VASCULAR 01/26/2015 [id number] / / [id number] documented as of this encounter Visit Diagnoses Diagnosis History of breast cancer- Primary Personal history of malignant neoplasm of breast Breast cancer screening, high risk patient Screening mammogram for high-risk patient documented in this encounter Advance Directives * Full Code (Latest Code Status on File) Date Activated Date Inactivated Comments 08/16/2021 10:34 AM 08/16/2021 3:49 PM This order reflects the patients wishes and were consensually agreed upon. Question Answer Comments Discussion of Advance Directives occurred with: Not Discussed * Full Code Date Activated Date Inactivated Comments 10/23/2017 11:54 AM 10/23/2017 5:55 PM This order reflects the patients wishes and were consensually agreed upon. * Full Code Date Activated Date Inactivated Comments 01/31/2014 10:56 PM 02/06/2014 10:46 PM This order reflects the patients wishes and were consensually agreed upon. Question Answer Comments Discussion of Advance Directives occurred with: Not Discussed Does the patient have a Living Will? No Does the patient have Health Care Power of Attor armando? No * Full Code Date Activated Date Inactivated Comments 02/20/2013 11:52 AM 02/20/2013 5:16 PM This order reflects the patients wishes and were consensually agreed upon. Question Answer Comments Discussion of Advance Directives occurred with: Patient Does the patient have a Living Will? No Does the patient have Health Care Power of Attor armando? No * Full Code Date Activated Date Inactivated Comments 01/28/2013 11:10 AM 01/28/2013 7:07 PM This order re flects the patients wishes and were consensually agreed upon. Care Teams Special Education Administrator Relationship Specialty Start Date End Date Karen Thomas MD [address] [place] [address] PCP - General Family Medicine 12/04/17 documented as of this encounter"
[2024-02-29] MEDS ORDERED: MIDAZOLAM HCL 1 MG/ML 2ML VIAL ONE (06:37)
[2024-02-29] MEDS ORDERED: MoRPHine SULFATE PF 1 MG/ML 10 ML AMP/VIAL ONE (06:39)
--- NOTE | 2024-02-29 06:43 | History & Physical Bridge Note ---
Date of Service February 29, 2024 History & Physical Bridge Note I have examined the patient, reviewed the History & Physical and in the interval since the performance of the History & Physical I have noted the following changes of clinical significance: no changes noted
[2024-02-29] MEDS: TRANEXAMIC ACID 1,000 MG **IV Pre-op IV SCH (06:45)
[2024-02-29] MEDS ORDERED: PROPOFOL IV EMULSION 10 MG/ML 20 ML VIAL IV ONE ×2 (06:46→07:40)
[2024-02-29] MEDS ORDERED: MEPERIDINE HCL 25 MG/ML CARP/VIAL IV PRN (06:52)
[2024-02-29] MEDS ORDERED: ePHEDrine sulfate 50 MG/ML AMP IV PRN (06:52)
[2024-02-29] MEDS ORDERED: KETOROLAC 30 MG/ML VIAL IV PRN (06:52)
[2024-02-29] MEDS ORDERED: NALOXONE HCL 0.4 MG/1 ML VIAL/CARP IV PRN ×2 (06:52→09:51)
[2024-02-29] MEDS ORDERED: LACTATED RINGER'S 500 ML IV PRN (06:52)
[2024-02-29] MEDS ORDERED: PROMETHAZINE HCL 6.25 MG in SODIUM CHLORIDE 0.9% 50 ML IV PRN (06:52)
[2024-02-29] MEDS ORDERED: NALBUPHINE HCL IV PRN (06:52)
[2024-02-29] MEDS ORDERED: NALOXONE HCL 1 MG in SODIUM CHLORIDE 0.9% 1,000 ML IV PRN (06:52)
[2024-02-29] MEDS ORDERED: NALOXONE HCL 0.08 MG in SYRINGE 1.8 ML IV PRN (06:52)
[2024-02-29] MEDS ORDERED: ONDANSETRON INJ 2 MG/ML 2 ML VIAL IV PRN (06:52)
[2024-02-29] MEDS: ceFAZolin 2000MG 2,000 MG/15 ML SYR IV SCH ×2 (06:58→14:49)
[2024-02-29] MEDS ORDERED: NO NARCOTICS OR SEDATIVES SCH (07:00)
[2024-02-29] MEDS ORDERED: DC INTRASPINAL MORPHINE SCH (07:00)
[2024-02-29] MEDS: LR 60ML/HR IV SCH (07:05)
[2024-02-29] MEDS ORDERED: DEXAMETHASONE SOD INJ 4 MG/ML VIAL ONE (07:09)
[2024-02-29] MEDS ORDERED: ONDANSETRON INJ 2 MG/ML 2 ML VIAL ONE (07:09)
[2024-02-29] MEDS ORDERED: KETAMINE HCL 10MG/ML SYR ONE (07:11)
[2024-02-29] MEDS ORDERED: PHENYLEPHRINE HCL 10 MG/ML VIAL ONE (07:48)
[2024-02-29] MEDS: BUPIVACAINE/EPINEPHRINE 0.5% MPF 1:200,000 30 ML VIAL ONE (07:57)
--- NOTE | 2024-02-29 08:31 | Operative Report ---
PG Post Operative Report Pre & Post Diagnosis Operation Date: 02/29/24 07:00 Pre-Op Diagnosis: Left Hip Degenerative Joint Disease Post-Op Diagnosis: Left Hip Degenerative Joint Disease I identified the patient and participated in the time-out.: Yes Procedure Operation Date: 02/29/24 07:00 Actual Procedures p Left Total Hip Arthroplasty(Left) - Tamir Posey MD Surgeon Tamir Posey MD Certified Orthotist/Pedorthist None Estimated Blood Loss 200 Findings Consistent with Post-Op Diagnosis Specimens Left femoral head sent for pathology Anesthesia Type Spinal MAC Complications none Disposition Accompanied Patient To Recovery: No Indications Patient is a 58-year-old female is had a several year history of increasing left hip pain and discomfort that is gotten severely worse over the past 6 months. She failed conservative measures. X-rays show advanced hip arthritis which has progressed over time. She elected proceed with left total hip arthroplasty. Description of Procedure Operative implants consist of: 1. Biomet G7 size 52 mm acetabular shell. 2. 6.5 cancellous acetabular screws 1 at 35 mm length 1 at 30 mm length. 3. Laquey hole film mounter. 4. Highly cross-linked polyethylene liner with 52 mm outer diameter and 36 mm inner diameter. 5. DePuy Corail size 12 KLA femoral stem. 6. +8.5/36 mm ceramic articular ball. The patient was taken the op room, identified, placed on the operating table in the supine position. All contact areas were appropriately padded. IV antibiotics tried by anesthesia team. A spinal anesthetic and been implemented holding area. Crow catheter was placed in sterile fashion. Patient then placed in the right lateral decubitus position. An axillary roll was placed. A stool Birkett position was used for positioning. Left hip and leg were then prepped and draped in usual sterile fashion. A posterolateral approach to the left hip was then performed through a curvilinear incision centered over the greater trochanter. Sharp dissection Subcutaneous tissue down the IT band gluteal fascia through the IT band gluteal fascia was then incised longitudinally in line with skin incision. The underlying greater bursa was excised. The piriformis and external rotators along with the posterior hip joint capsule were then released from the posterior aspect the hip as a single layer. Great care was taken throughout the procedure protect the sciatic nerve at all times. The hip was then internally rotated and dislocated. A femoral neck osteotomy cut was made with a Final Cut about 8 mm above the lesser trochanter. Femoral head was removed and sent for pathology. The femur was retracted anteriorly. Attention drawn the acetabulum. The acetabular labrum was excised. The pulmonary fat was excised. Sequential reaming of the acetabulum was then performed again with size 43 and progressing up to a 51. I did ream some with a 52 reamer and then placed a 52 mm Biomet G7 acetabular shell in about 40 degrees lateral opening and 20 degrees of anteversion. It was fixed with two 6.5 screws. A trial liner was placed. Attention drawn the femur. The proximal femur was entered with a cookie cutter followed by canal finder. I then broached beginning the size 8 and progressing up to 12 we got excellent fitted to 12. I trialed the hip and the hip was fully stable but the soft tissue tension was, Laxsol elected to place a +8.5 head. The hip was fully stable and still a soft tissue tension was a little bit lax but I did not want to lengthen her anymore. We elect to place his implants. All trial implants were removed. A highly cross-linked polyethylene liner was placed. A size 12 KLA femoral stem was impacted in position. +8.5/36 mm ceramic articular ball was placed. Hip was located and once again found to be stable. Attention turned toward closing. The wounds irrigated coconuts pulsatile lavage solution. We did inject locally with 60 cc of half percent Marcaine with epinephrine. The posterior capsule and external rotators then repaired through drill holes in the posterior trochanter with #2 Tycron suture. The IT band gluteal fascia then closed in 1 PDS suture running fashion through subcutaneous tissue then closed with 2 layers of the deep layer #1 Vicryl suture and subcutaneous tissues with 2-0 Dexon suture in a buried interrupted fashion. Skin was closed with skin jad. Leg was then cleaned and dried and a sterile dressing with Xeroform, 4 x 4's, ABD and sterile tape was applied. The patient then transferred to the recovery room in stable condition. Patient tolerated the procedure well and there were no complications. I attest to the content of the Intraoperative Record and any orders documented therein. Any exceptions are noted below.
--- NOTE | 2024-02-29 09:49 | Anesthesiology Progress Note ---
Date of Service February 29, 2024 Anesthesia Post Procedure Vital Signs Vital Signs: Temp Pulse Pulse Resp BP Pulse Ox O2 Del Method 02/29/24 09:00 68 14 150/67 H 98 Room Air 02/29/24 08:50 79 14 133/68 96 Oxymask 02/29/24 08:40 87 13 141/86 H 96 Oxymask 02/29/24 08:30 36.8 C 92 H 13 141/77 H 100 Oxymask 02/29/24 08:24 36.8 C 100 H 15 136/57 L 100 Oxymask 02/29/24 05:40 37.1 C 85 20 164/95 H 95 Room Air O2 Flow Rate 02/29/24 09:00 02/29/24 08:50 2 02/29/24 08:40 3 02/29/24 08:30 4 02/29/24 08:24 7 02/29/24 05:40 Transfer of Care Handoff Completed per policy Notes Mental Status: alert / awake / arousable Patient Amnestic to Procedure: Yes Nausea / Vomiting: adequately controlled Pain: adequately controlled Airway Patency, RR, SpO2: stable & adequate BP & HR: stable & adequate Hydration State: stable & adequate Neuraxial Anesthesia: was administered and sensory block is resolving Anesthetic Complications: no major complications apparent
[2024-02-29] MEDS ORDERED: bisacodyL 10 MG SUPP PR PRN (09:51)
[2024-02-29] MEDS ORDERED: ALUMINUM/MAGNESIUM SUSP 30 ML UDC PO PRN (09:51)
[2024-02-29] MEDS ORDERED: MAGNESIUM HYDROXIDE SUSP 30 ML UDC PO PRN (09:51)
--- NOTE | 2024-02-29 11:50 | XRay Report ---
XR hip 1V LT w pelvis CLINICAL HISTORY: IN PACU - Post Surgical TECHNIQUE: 1 view of the left hip and single frontal view of the pelvis were obtained. Comparison: Comparison is made to hip radiograph 02/27/2022 FINDINGS: Patient is status post total hip arthroplasty with expected postsurgical changes including soft tissu e swelling and subcutaneous emphysema. IMPRESSION: Expected postoperative appearance status post placement of total hip arthroplasty. ACT 112: Negative or not required by law. Electronically signed by: Allan Brito M.D. 02/29/2024 11:48 AM
[2024-02-29] MEDS: LEVOTHYROXINE SODIUM 100 MCG TABLET PO SCH (12:33)
[2024-02-29] MEDS: PANTOprazole 40 MG TAB PO SCH (12:34)
[2024-02-29] MEDS: MoRPHine SULFATE PF 1 MG/ML 10 ML AMP/VIAL INT SPINAL ONE (12:35)
[2024-02-29] MEDS: SODIUM CHLORIDE 0.9% 1,000 ML IV SCH ×2 (12:36→12:37)
[2024-02-29] MEDS: DOCUSATE SODIUM 100 MG CAP PO SCH (12:37)
[2024-02-29] MEDS: ASPIRIN 81 MG ECTAB PO SCH (12:37)
[2024-02-29] MEDS: CYANOCOBALAMIN (B-12) 500 MCG TABLET PO SCH (12:38)
[2024-02-29] MEDS: MULTIVITAMIN TAB PO SCH (12:38)
[2024-02-29] MEDS: SENNA 8.6 MG TAB PO SCH (12:39)
[2024-02-29] MEDS: TRANEXAMIC ACID / 0.7% NACL 1,000 MG/100 ML BAG IV SCH (14:48)
[2024-02-29] MEDS: ONDANSETRON INJ 2 MG/ML 2 ML VIAL IV PRN (15:11)
[2024-02-29] MEDS: Scopolamine CHECK PATCH PLACEMENT SCH (17:19)
[2024-02-29] MEDS: ASCORBIC ACID 500 MG TAB PO SCH (17:19)
[2024-02-29] MEDS: diphenhydrAMINE 50 MG/ML VIAL IV PRN (20:05)
[2024-02-29] MEDS: OMEGA-3 (PURIFIED FISH OIL) 1 GM CAP PO SCH (20:08)
[2024-02-29] MEDS ORDERED: SENNA 8.6 MG TAB PO SCH (21:00)
[2024-03-01] MEDS ORDERED: HYDROmorphone INJ 0.5 MG/0.5 ML SYR IV PRN (00:54)
[2024-03-01] MEDS ORDERED: METOCLOPRAMIDE HCL INJ 5 MG/ML 2 ML VIAL IV PRN (00:54)
[2024-03-01] MEDS ORDERED: diphenhydrAMINE Capsule 25 MG CAP PO PRN (00:54)
[2024-03-01] MEDS ORDERED: traMADol HCL 50 MG TABLET PO PRN (00:54)
[2024-03-01] MEDS: ZOLPIDEM TARTRATE 5 MG TAB PO PRN (01:08)
[2024-03-01] MEDS: KETOROLAC 30 MG/ML VIAL IV SCH (01:17)
[2024-03-01 07:50] LABS: Hematocrit (blood only) 37.3 % (37.0-47.0); Hemoglobin 12.1 g/dl (12.0-16.0); Mean Corpuscular Hgb Conc 32.4 g/dL (32.0-36.0); Mean Corpuscular Volume 92.3 fL (80.0-100.0); Mean Platelet Volume 9.8 fL (9.4-12.4); Platelet Count 310 K/uL (130-400); RDW Coefficient of Variation 13.4 % (11.5-14.5); RDW Standard Deviation 45.7 fL (36.4-46.3); Red Blood Count 4.04 M/uL (4.20-5.40); White Blood Count 25.97 K/ul (4.8-10.8)
[2024-03-01 08:06] LABS: BUN Creatinine Ratio 14.3 (10-20); Calcium 9.6 mg/dl (8.6-10.3); Creatinine Clr Calc Pharmacy 82.4 ml/min; Est GFR (Non-African American) 77.7 ml/min; Potassium 4.1 mmol/L (3.5-5.1)
--- NOTE | 2024-03-01 08:09 | Orthopedic Progress Note ---
Date of Service March 01, 2024 Assessment & Plan (1) Status post left hip replacement: Plan: 58-year-old female postop day 1 from the left hip replacement doing well. Pains controlled. She is neurologically intact. Plan: 1. DVT prophylaxis including thigh-high teds, SCDs, aspirin twice a day. 2. PT/OT. She can fully weight-bear as tolerated. Needs to obey hip precautions. 3. Pain control doing well with current pain regimen. Does not do well with na rcotics. Will try to limit to Tylenol and Toradol and use tramadol only if necessary. 4. Disposition plan to discharge to home with some home health she does okay in therapy today. Admission and Anticipated Discharge Date Admission Date: February 29, 2024 Subjective 58-year-old female postop day 1 from left hip replacement. She is doing much better this morning. No nausea. No chest pain or shortness of breath. Pain is very well-controlled. She has been up and walk to the bathroom without much difficulty. Physical Exam Physical Exam: Physical exam shows a pleasant middle-age female. Sitting up in her bedside chair looks comfortable. Examination of the left hip and leg reveals dressing be clean dry and intact. Leg lengths are equal. Thigh is soft and supple. She is neurologically intact. Respiratory: normal respiratory effort, lungs clear to auscultation Cardiovascular: RRR, no murmur, no edema Gastrointestinal (Abdomen): normal bowel sounds, soft, nontender, no hepatosplenomegaly Results & Data Vital Signs (Past 12 Hours) Vital Signs Temp Pulse Resp BP Pulse Ox O2 Del Method 03/01/24 07:29 36.7 C 63 16 111/68 95 Room Air 03/01/24 04:12 36.7 C 59 L 16 115/68 97 Room Air 02/29/24 23:10 36.7 C 65 19 113/69 94 Room Air 02/29/24 23:02 18 95 02/29/24 22:00 19 95 Laboratory Results Hemoglobin is 12.1. Hematocrit is 37.3. Electrolytes are stable.
[2024-03-01] MEDS: dexAMETHasone 10 MG in SYRINGE 0 ML IV SCH (08:56)
[2024-03-01] MEDS: CHOLECALCIFEROL 125 MCG (5,000 UNITS) TAB PO SCH (09:04)
[2024-03-01 09:33] LABS: Basophils # (auto) 0.03 K/uL (0.00-0.20); Basophils % (auto) 0.1 %; Immature Granulocytes # (auto) 0.23 K/uL (0.01-0.20); Immature Granulocytes % (auto) 0.9 %; Lymphocytes # (auto) 1.82 K/uL (1.20-3.40); Monocytes # (auto) 1.39 K/uL (0.11-0.59); Monocytes % (auto) 5.4 %; Neutrophils % (auto) 86.6 %; RBC Morphology Unremarkable
--- NOTE | 2024-03-04 12:43 | Discharge Summary ---
Date of Service March 04, 2024 Discharge Data Procedures Performed Operation Date: 02/29/24 07:00 Actual Procedures p Left Total Hip Arthroplasty(Left) - Tamir Posey MD Hospital Course (1) Status post left hip replacement: This is a 58 year old patient admitted on 02/29/24 and underwent total hip arthroplasty. She tolerated the procedure well and there were no complications. Transferred to the PACU post op and later to the orthopedic floor for further care. She was given ancef for antibiotic prophylaxis. She was also given APRIL stockings, SCDs, and aspirin for DVT prophylaxis. Hemoglobin, hematocrit, and vital signs were monitored during her hospital stay and remained stable. Did not require any blood transfusions. There were no complications during her hospital stay. By post op day #1 the patient was tolerating a regular diet, pain was reasonably controlled with oral pain medicine, and she was participating in physical therapy. On post op day #1 the patient was discharged home and set up with home health care. She was given printed discharge instructions including prescriptions for extra strength tylenol, aspirin, ketorolac, zofran, senokot, and tramadol. Continue hip precautions. Continue physical therapy, weight bearing as tolerated. Continue APRIL stockings. Follow up approximately 2 weeks post op or sooner if there are problems or concerns. Coding Level of Care Code None Diagnoses Status post left hip replacement Z96.642
== END 2024-03-01 13:06 | disposition home health service (06) ==
LOC: 3E 05:03 → ASU 05:03
DX: Z79.82 Long term (current) use of aspirin; Z88.7 Allergy status to serum and vaccine; Z88.5 Allergy status to narcotic agent; Z88.8 Allergy status to other drugs, medicaments and biological substances; Z79.890 Hormone replacement therapy; M16.12 Unilateral primary osteoarthritis, left hip; Z79.899 Other long term (current) drug therapy